=== PATIENT | female | born 1980 | race Caucasian/White ===

== ENCOUNTER 2017-01-20 19:58 | Emergency (ER) | payer OTHER ==
[2017-01-20 20:17] VITALS: BP 152/98
[2017-01-20] MEDS ORDERED: Ipratropium 0.5MG/2.5ML NEB* 0.5 MG/2.5 ML NEB.SOLN INH ONE (20:25)
[2017-01-20] MEDS ORDERED: Albuterol 2.5 MG/3 ML NEB.SOL* (0.083%) INH ONE (20:25)
[2017-01-20] MEDS ORDERED: methylPREDNISolone 125 MG* 2 ML VIAL IV ONE (20:29)
--- NOTE | 2017-01-20 22:25 | UC ---
Ramu Goodrich Janilya, scribed for Mary Quiroz MD on 01/20/17 at 2028 . Respiratory Complaint HPI - HPI Summary HPI Summary: A 36 y/o female came in to [facility] presenting w/ a gradual onset of constant respiratory complaint for about a few days. Pt reports cough that is so significant that she passes out and turns blue. She also reports fever. Her O2 level now is 88%. Pt uses CPAP and home O2 2L at night, but sometimes she removes it. PMHx sleep apnea. SHx heavy tobacco use. - History of Current Complaint Chief Complaint: UCRespiratory Stated Complaint: COUGH Time Seen by Provider: 01/20/17 20:20 Hx Obtained From: Patient Hx Last Menstrual Period: does not get Onset/Duration: Gradual Onset, Lasting Days, Still Present Timing: Constant Severity Initially: Moderate Severity Currently: Moderate Pain Intensity: 0 Pain Scale Used: 0-10 Numeric Character: Cough: Nonproductive Aggravating Factors: Nothing Alleviating Factors: Nothing Associated Signs And Symptoms: Positive: Dyspnea, Dizziness, URI, Nasal Congestion - Risk Factors Pulmonary Embolism Risk Factors: Negative Cardiac Risk Factors: Smoking Pseudomonas Risk Factors: Negative Tuberculosis Risk Factors: Negative - Allergies/Home Medications Allergies/Adverse Reactions: Allergies Allergy/AdvReac Type Severity Reaction Status Date / Time No Known Allergies Allergy Verified 01/20/17 20:17 Home Medications: Home Medications Citalopram TAB* [CeleXA TAB*] 20 mg PO DAILY 01/20/17 [History Confirmed ] Cyclobenzaprine TAB* [Flexeril TAB*] 10 mg PO BID PRN 01/20/17 [History Confirmed 01/20/17] Fluticasone-Salmeterol 500-50* [Advair Diskus 500-50*] 1 puff INH BID 01/20/17 [ History Confirmed 01/20/17] Gabapentin CAP(*) [Neurontin 400 mg CAP(*)] 800 mg PO BID 01/20/17 [History Confirmed 01/20/17] PMH/Surg Hx/FS Hx/Imm Hx Previously Healthy: Yes Respiratory History Of: Reports: Asthma - O2 at night - Surgical History Surgical History: Yes Surgery Procedure, Year, and Place: Tubal ligation. - Family History Known Family History: Positive: Cardiac Disease, Hypertension, Diabetes - Social History Lives: With Family Alcohol Use: Occasionally Substance Use Type: None Smoking Status (MU): Current Every Day Smoker Type: Cigarettes Amount Used/How Often: 1/2 ppd day - Immunization History Most Recent Influenza Vaccination: fall 2015 Most Recent Tetanus Shot: Unknown Hx Tetanus, Diphtheria Vaccination: - Patient is unsure Review of Systems Constitutional: Fever Skin: Negative Eyes: Negative ENT: Negative Respiratory: Shortness Of Breath, Cough Cardiovascular: Negative Gastrointestinal: Negative Genitourinary: Negative Motor: Negative Neurovascular: Negative Musculoskeletal: Negative Neurological: Negative Psychological: Negative All Other Systems Reviewed And Are Negative: Yes Physical Exam Triage Information Reviewed: Yes Appearance: No Pain Distress, Well-Nourished, Ill-Appearing Vital Signs: Initial Vital Signs Temp 97.0 F 01/20/17 20:10 Pulse 106 01/20/17 20:10 Resp 20 01/20/17 20:10 BP 152/98 01/20/17 20:10 Pulse Ox 88 01/20/17 20:10 Vital Signs Reviewed: Yes Eyes: Positive: Conjunctiva Clear ENT: Positive: Normal ENT inspection Neck: Positive: Supple Respiratory: Positive: Respiratory distress, Decreased breath sounds, Wheezing Cardiovascular: Positive: RRR, Pulses Normal, Brisk Capillary Refill Musculoskeletal: Positive: Strength Intact, ROM Intact Neurological: Positive: Alert, Muscle Tone Normal Psychological Exam: Normal Skin Exam: Normal UC Diagnostic Evaluation - Laboratory O2 Sat by Pulse Oximetry: 88 Respiratory Course/Dx - Differential Dx/Diagnosis Differential Diagnosis/HQI/PQRI: Asthma, Bronchitis, Exacerbation Of COPD, Influenza, Lower Resp Infection Provider Diagnoses: respiratory distress. acute bronchospasm - Physician Notification/Consults Discussed Patient Care With: Dutch Kunz (PA at the [facility]) at 2025: discussed transfer to the hospital due to significance of pt's current condition. Discharge - Discharge Plan Condition: Stable Disposition: TRANS HIGHER LVL OF CARE FAC Referrals: eDlilah Gregory MD [Primary Care Provider] - The documentation as recorded by the Ramu treviño Janilya accurately reflects the service I personally performed and the decisions made by , Mary Quiroz MD.
== END 2017-01-20 21:45 | disposition short-term general hospital (02) ==
LOC: UCEAST 19:58
DX: R06.00 Dyspnea, unspecified (principal); J45.909 Unspecified asthma, uncomplicated; F17.210 Nicotine dependence, cigarettes, uncomplicated
CPT/HCPCS: 96360; 96375; 99213; G0463; J2930; J7644

== ENCOUNTER 2017-01-20 21:40 | Emergency (ER) | payer OTHER ==
[2017-01-20 23:31] VITALS: BP 151/90
--- NOTE | 2017-01-20 23:31 | ED ---
Nic Goodrich Benjamin, scribed for Rock Ortiz MD on 01/20/17 at 2158 . Shortness of Breath - HPI Summary HPI Summary: 36yo female had cough spells and passed out. Pt feels better now. Pt came to ED via EMS for low O2 sat. Pt is on 2L Oxygen at home on nights. - History of Current Complaint Time Seen by Provider: 01/20/17 21:53 Hx Obtained From: Patient Onset/Duration: Lasting Hours, Resolved Timing: Constant Current Severity: None Alleviating Factors: Oxygen Associated Signs & Symptoms: Cough (Nonproductive) - Allergy/Home Medications Allergies/Adverse Reactions: Allergies Allergy/AdvReac Type Severity Reaction Status Date / Time No Known Allergies Allergy Verified 01/20/17 20:17 PMH/Surg Hx/FS Hx/Imm Hx Endocrine/Hematology History: Denies: Hx Diabetes Respiratory History: Reports: Hx Asthma - O2 at night, Other Respiratory Problems/Disorders - 02 AT NIGHT - Surgical History Surgery Procedure, Year, and Place: Tubal ligation. - Family History Known Family History: Positive: Cardiac Disease, Hypertension, Diabetes - Social History Alcohol Use: Occasionally Substance Use Type: Reports: None Smoking Status (MU): Current Every Day Smoker Type: Cigarettes Amount Used/How Often: 1/2 ppd day Review of Systems Constitutional: Negative Eyes: Negative ENT: Negative Cardiovascular: Negative Positive: Shortness Of Breath, Cough Gastrointestinal: Negative Genitourinary: Negative Musculoskeletal: Negative Skin: Negative Neurological: Negative Psychological: Normal All Other Systems Reviewed And Are Negative: Yes Physical Exam Triage Information Reviewed: Yes Vital Signs On Initial Exam: Initial Vitals Temp Pulse Resp BP Pulse Ox 97.6 F 91 20 131/83 96 01/20/17 22:08 01/20/17 22:08 01/20/17 22:08 01/20/17 22:08 01/20/17 22:08 Vital Signs Reviewed: Yes Appearance: Positive: Well-Appearing, Obese - morbidly Skin: Positive: Warm Eyes: Positive: DALLIN ENT: Positive: Hearing grossly normal Neck: Positive: Supple Respiratory/Lung Sounds: Positive: Clear to Auscultation, Breath Sounds Present Cardiovascular: Positive: RRR. Negative: Murmur Abdomen Description: Positive: Nontender, Soft Bowel Sounds: Positive: Present Musculoskeletal: Positive: Strength/ROM Intact Neurological: Positive: Sensory/Motor Intact Psychiatric: Positive: Affect/Mood Appropriate Diagnostics - Vital Signs Vital Signs Temp Pulse Resp BP Pulse Ox 01/20/17 22:08 97.6 F 91 20 131/83 96 - Laboratory Result Diagrams: 01/20/17 23:05 01/20/17 23:05 Lab Statement: Any lab studies that have been ordered have been reviewed, and results considered in the medical decision making process. Re-Evaluation - Re-Evaluation First Eval Change: Improved Course/Dx - Diagnoses Provider Diagnoses: Syncope Discharge - Discharge Plan Condition: Stable Disposition: HOME Patient Education Materials: Syncope (ED) Referrals: Delilah Gregory MD [Primary Care Provider] - 1 Week The documentation as recorded by the Nic treviño Benjamin accurately reflects the service I personally performed and the decisions made by Angel snyder David, MD.
[2017-01-20 23:35] LABS: Hematocrit 50 % (35-47); Hemoglobin 16.6 g/dl (12.0-16.0); Mean Corpuscular HGB Conc 33 g/dl (31-36); Mean Corpuscular Hemoglobin 32 pg (27-31); Mean Corpuscular Volume 95 fL (80-97); Mean Platelet Volume 9 um3 (7.4-10.4); Red Blood Count 5.27 10^6/ul (4.0-5.4); Red Cell Distribution Width 14 % (10.5-15); White Blood Count 5.8 10^3/ul (3.5-10.8)
[2017-01-20 23:39] LABS: BUN/Creatinine Ratio 9.7 (8-20); Calcium 9.6 mg/dL (8.6-10.3); EGFR African American 87.2 (>60); EGFR Non-African American 67.8 (>60); Potassium 3.9 mmol/L (3.5-5.0)
--- NOTE | 2017-01-21 07:43 | RAD ---
INDICATION: Syncope COMPARISON: Chest x-ray dated November 15, 2015 TECHNIQUE: PA and lateral views of the chest were obtained. FINDINGS: The heart and mediastinum are normal in size and contour. The lungs are grossly clear. There is no evidence of large pleural effusion. Visualized bones are normal for the patient's age. There is no radiographic evidence of free air beneath the diaphragm IMPRESSION: No radiographic evidence of acute cardiopulmonary disease.
== END 2017-01-21 01:08 | disposition home or self-care (01) ==
LOC: ED 21:40
DX: R55 Syncope and collapse (principal); R06.02 Shortness of breath; R05 Cough; F17.210 Nicotine dependence, cigarettes, uncomplicated; J45.909 Unspecified asthma, uncomplicated; R06.00 Dyspnea, unspecified
CPT/HCPCS: 36415; 71020; 80048; 85025; 96360; 96375; 99213; 99283; G0463; J2930; J7644

== ENCOUNTER 2017-01-22 14:15 | Inpatient (IN) | payer OTHER ==
[2017-01-22] MEDS ORDERED: methylPREDNISolone SOD SUCC* 125 MG 2 ML VIAL IV ONE (15:03)
[2017-01-22] MEDS ORDERED: Albuterol/Ipratropium NEB.SOL* Albuterol 2.5 MG/Ipratropium 0.5 MG 3 ML INH ONE (15:03)
--- NOTE | 2017-01-22 15:18 | ED ---
Asthma - HPI Summary HPI Summary: 36 female presents with complaints of SOB, cough and difficulty breathing x 1 week. Patient was seen in ED on 01/20 after being transferred here from [facility] due to an asthma exacerbation and syncope due to coughing so hard. She was sent home from ED. Followed-up with her PCP today who sent her back here to ED due to low O2 sat. Patient O2 at PCP was about 88% after being on oxygen 4L nasal cannula she has been at 94-96%. Admits to SOB and worsening cough symptoms that has become more frequent and productive. States she coughs up green/yellow colored sputum. Denies fever/chills, chest pain, abdominal pain. Does have some nasal congestion and headaches. PMHx significant for sleep apnea and asthma. She is on 2ml of oxygen via nasal cannula at night and CPAP. Is prescribed flexeril for her back however has not taken it in weeks. She only uses an inhaler and advair diskus at home for her asthma. Has not been taking steroids was only given solumedrol on 01/20 IV at urgent care. Quit smoking 1 week ago. - History of Current Complaint Chief Complaint: EDShortnessOfBreath Stated Complaint: SOB Time Seen by Provider: 01/22/17 14:32 Hx Obtained From: Patient Hx Last Menstrual Period: does not get Onset/Duration: Sudden Onset Initial Severity: Moderate Current Severity: Moderate Pain Intensity: 0 Pain Scale Used: 0-10 Numeric Aggravating Symptoms: Exertion Alleviating Symptoms: Steriods, Inhalers/Nebulizers, Oxygen Associated Signs and Symptoms: Positive: URI, Shortness of Breath - Allergy/Home Medications Allergies/Adverse Reactions: Allergies Allergy/AdvReac Type Severity Reaction Status Date / Time No Known Allergies Allergy Verified 01/20/17 20:17 PMH/Surg Hx/FS Hx/Imm Hx Endocrine/Hematology History: Denies: Hx Diabetes Respiratory History: Reports: Hx Asthma - O2 at night, Hx Sleep Apnea, Other Respiratory Problems/Disorders - 02 AT NIGHT - Surgical History Surgery Procedure, Year, and Place: Tubal ligation. - Immunization History Date of Influenza Vaccine: 08/22/16 Infectious Disease History: No Infectious Disease History: Denies: Traveled Outside the [place] in Last 30 Days - Family History Known Family History: Positive: Cardiac Disease, Hypertension, Diabetes - Social History Alcohol Use: Occasionally Substance Use Type: Reports: None Smoking Status (MU): Former Smoker Type: Cigarettes Amount Used/How Often: 1/2 day Review of Systems Constitutional: Negative Eyes: Negative Positive: Nasal Discharge Cardiovascular: Negative Positive: Shortness Of Breath, Cough Gastrointestinal: Negative Genitourinary: Negative Musculoskeletal: Negative Skin: Negative Positive: Headache - not now, but over the past couple of days Psychological: Normal All Other Systems Reviewed And Are Negative: Yes Physical Exam Triage Information Reviewed: Yes Vital Signs On Initial Exam: Initial Vitals Temp Pulse Resp BP Pulse Ox 98.4 F 92 20 146/92 93 01/22/17 14:38 01/22/17 14:38 01/22/17 14:38 01/22/17 14:38 01/22/17 14:38 Vital Signs Reviewed: Yes Appearance: Positive: Well-Appearing, No Pain Distress, Well-Nourished Skin: Positive: Warm, Skin Color Reflects Adequate Perfusion - cap refill <2 second refill, Dry. Negative: Cyanosis @, Diaphoretic Head/Face: Positive: Normal Head/Face Inspection Eyes: Positive: EOMI, DALLIN, Conjunctiva Clear ENT: Positive: Normal ENT inspection, Hearing grossly normal, Pharynx normal, Nasal congestion, TMs normal Dental: Negative: Percussion Tenderness @, Cervical Lymphadenopathy Neck: Positive: Supple, Nontender, No Lymphadenopathy Respiratory/Lung Sounds: Positive: Clear to Auscultation, Breath Sounds Present , Rhonchi, Wheezes - throughout. Negative: Tracheal Deviation, Unable to speak in full sentences, Fatigue Cardiovascular: Positive: Normal, RRR, Pulses are Symmetrical in both Upper and Lower Extremities. Negative: Leg Edema Left, Leg Edema Right Abdomen Description: Positive: Nontender, No Organomegaly, Soft Bowel Sounds: Positive: Present Musculoskeletal: Positive: Normal, Strength/ROM Intact Neurological: Positive: Normal, Sensory/Motor Intact, Alert, Oriented to Person Place, Time Psychiatric: Positive: Normal - [place] Coma Scale Coma Scale Total: 15 Diagnostics - Vital Signs Vital Signs Temp Pulse Resp BP Pulse Ox 01/22/17 14:38 98.4 F 92 20 146/92 93 - Laboratory Result Diagrams: 01/22/17 15:35 01/22/17 16:45 Lab Statement: Any lab studies that have been ordered have been reviewed, and results considered in the medical decision making process. - Radiology chest x-ray Xray Interpretation: No Acute Changes - No active cardiopulmonary disease is noted Radiology Interpretation Completed By: Radiologist - CT No standard instances CT Interpretation: Positive (See Comments) - 1. Bilateral patchy pulmonary consolidation suspicious for bronchopneumonia. 2. Mildly limited CT pulmonary angiogram without compelling evidence for pulmonary embolism. 3. Mildly enlarged precarinal and subcarinal mediastinal lymph nodes. 4. Partially visualized LEFT adrenal mass is likely a benign lipid rich adenoma however nonemergent follow-up noncontrast CT of the adrenal glands is suggested for further assessment. CT Interpretation Completed By: Radiologist - EKG No standard instances Cardiac Rate: NL EKG Rhythm: Sinus Rhythm Re-Evaluation - Re-Evaluation First Eval Re-Evaluation Time: 20:05 Change: Unchanged - patient did not have much of any relief after steroid and duoneb. Did feel better with supplemental O2 Asthma Course/Dx - Course Course Of Treatment: last duoneb was given at PCP office around 1pm. Another duoneb was administered here. Repeat chest x-ray due to worsening cough and symptoms not improving. Solumedrol IV given. Patient did not have any relief after steroid or duoneb. Does have relief when wearing oxygen. Due to no improvement CTA EKG and ABG's were obtained. CTA was suscpicous for bronchopneumonia. Gave first dose of 750mg Levaquin IV while in ED. Patient O2 would drop to 85% without oxygen, speaking in full sentences, stating she felt fine. PAtient O2 would increase to 94% with 2L oxygen via NC however would drop to 88% on occasion. Discussed case with Dr Light who also evaluated patient. [place] be [place] [facility] [place] Light spoke with Dr Mattson. - Diagnoses Differential Diagnosis/HQI/PQRI: Positive: Acute Asthma, Bronchitis, Pneumonia Provider Diagnoses: COPD (chronic obstructive pulmonary disease), Hypoxia, Pneumonia - Provider Notifications Discussed Care Of Patient With: Dr Mattson, Dr Light Instructed by Provider To: Admit As Inpatient Discharge - Discharge Plan Condition: Stable Disposition: ADMITTED TO [facility] Prescriptions: Albuterol 2.5MG/3ML (0.083%)* [Ventolin 2.5 MG/3 ML NEB.CAR*] 2.5 mg INH Q4H # 30 neb.car Levofloxacin TAB* [Levaquin 500 Tab*] 500 mg PO DAILY #10 tab predniSONE TAB* [Deltasone TAB*] 40 mg PO DAILY #4 tab Patient Education Materials: Pneumonia (ED), Levofloxacin (By mouth) Referrals: Delilah Gregory MD [Primary Care Provider] -
--- NOTE | 2017-01-22 15:43 | RAD ---
Indication: Shortness of breath, wheezing. No changes noted since January 20, 2017. 2 views of the chest including dual energy PA views demonstrate no mediastinal shift. Heart is of normal size and configuration. Lung castellanos demonstrate no pleural fluid, pneumonia or pneumothorax. IMPRESSION: No active cardiopulmonary disease is noted.
[2017-01-22 16:58] LABS: Hematocrit 49 % (35-47); Hemoglobin 16.1 g/dl (12.0-16.0); Mean Corpuscular HGB Conc 33 g/dl (31-36); Mean Corpuscular Hemoglobin 32 pg (27-31); Mean Corpuscular Volume 96 fL (80-97); Mean Platelet Volume 9 um3 (7.4-10.4); Red Blood Count 5.09 10^6/ul (4.0-5.4); Red Cell Distribution Width 14 % (10.5-15); White Blood Count 5.9 10^3/ul (3.5-10.8)
[2017-01-22 17:09] LABS: Albumin 3.9 g/dL (3.2-5.2); Calcium 9.6 mg/dL (8.6-10.3); EGFR African American 100.9 (>60); EGFR Non-African American 78.4 (>60); Globulin 3.7 g/dL (2-4); Total Bilirubin 0.4 mg/dL (0.2-1.0); Total Protein 7.6 g/dL (6.4-8.9)
[2017-01-22] MEDS ORDERED: Iohexol 350* (CONTRAST) 500 ML MDV IV ONE (17:47)
--- NOTE | 2017-01-22 19:09 | RAD ---
INDICATION: Recent coughing and syncopal episode. Decreased O2 saturation. Tobacco cessation one week ago. COMPARISON: January 22, 2017 chest radiograph. TECHNIQUE: Multidetector CT images were obtained from the lung apices to the upper abdomen with 88 mL Omnipaque 350 IV contrast. Pulmonary angiogram protocol. Multiplanar reformation including with maximum intensity projection. REPORT: Obesity limits image quality. Bilateral patchy pulmonary consolidation suspicious for bronchopneumonia. 3 cm bulla at the medial LEFT upper lung zone and smaller bulla at the anterior RIGHT upper lobe and anterior basal segment of the RIGHT lower lobe. Negative for pleural effusions. Negative for pneumothorax. Normal size range 0.6 cm RIGHT paratracheal nodes. Mildly prominent 1.2 cm short axis precarinal lymph node. Mildly prominent 1.2 cm short axis subcarinal lymph node. Mild cardiomegaly. Negative for pericardial effusion. Normal diameter thoracic aorta without evidence for dissection. The CT pulmonary angiogram is mildly limited due to morbid obesity and respiratory motion. No gross filling defects are identified within the main through the segmental and where conspicuous the subsegmental pulmonary arteries to indicate pulmonary embolism. Partially visualized hypodense LEFT adrenal mass measuring up to 3.4 x 3.0 cm and extending beyond the caudal margin of the [id number] is likely a benign lipid rich adenoma based on foci of low density measurement. Fatty infiltration of the liver. Negative for suspicious thoracic osseous lesions. IMPRESSION: 1. Bilateral patchy pulmonary consolidation suspicious for bronchopneumonia. 2. Mildly limited CT pulmonary angiogram without compelling evidence for pulmonary embolism. 3. Mildly enlarged precarinal and subcarinal mediastinal lymph nodes. 4. Partially visualized LEFT adrenal mass is likely a benign lipid rich adenoma however nonemergent follow-up noncontrast CT of the adrenal glands is suggested for further assessment.
[2017-01-22] MEDS ORDERED: Levofloxacin 750 MG IVPREMIX(* 750 MG/150 ML BAG IVPB ONE (20:11)
[2017-01-22 21:25] LABS: PCO2 Arterial 51 mmHg (35-45)
--- NOTE | 2017-01-22 21:57 | ED ---
Tammy Goodrich Matthew, scribed for Brannon Light MD on 01/22/17 at 2151 . Progress - Progress Note Progress Note: A 36 y/o female was seen by the PA for SOB, wheezing, and productive cough. The patient was given multiple albuterol treatments, DuoNeb, and solumedrol. The symptoms slightly improved; however right now the patient is saturating between 88-89% on 2L of oxygen. The patients also getting Levaquin for possible COPD vs hypoventilation syndrome. At this point, I discussed the case with Dr. Mattson who agrees to admit the patient for further work-up and management. The patient is A &Ox3. Physical Exam: The patient is generally obese in no acute distress. Lungs have bilaterally wheezing with decreased breath sounds. CVS S1 and S2 present with no murmur appreciated Extremities have full ROM with no edema noted Neuro: A&Ox3 with no acute focal neurological deficits noted. Course/Dx - Diagnoses Provider Diagnoses: COPD (chronic obstructive pulmonary disease), Hypoxia, Pneumonia The documentation as recorded by the Tammy treviño Matthew accurately reflects the service I personally performed and the decisions made by me, Brannon Light MD.
[2017-01-22] MEDS: Albuterol/Ipratropium NEB.SOL* Albuterol 2.5 MG/Ipratropium 0.5 MG 3 ML INH SCH (22:17)
[2017-01-22] MEDS ORDERED: Dextrose 50% Syringe 50 ML* 25 GM/50 ML SYRINGE IV PUSH PRN (22:19)
[2017-01-22] MEDS ORDERED: Albuterol 2.5 MG/3 ML NEB.SOL* (0.083%) INH PRN (22:19)
[2017-01-22] MEDS ORDERED: Ondansetron INJ* 2 MG/ML VIAL IV PRN (22:19)
[2017-01-22] MEDS ORDERED: Acetaminophen TAB* 325 MG PO PRN (22:19)
[2017-01-22] MEDS ORDERED: Cyclobenzaprine TAB* 10 MG PO PRN (22:30)
[2017-01-22] MEDS ORDERED: NS 0.9% 1000 ML* 1,000 ML IV SCH (22:30)
[2017-01-22] MEDS ORDERED: HYDROcodone/ACETAMIN 5-325 MG* 1 TAB PO PRN (22:31)
[2017-01-22] MEDS ORDERED: VARENICLINE 1 MG PO SCH (23:00)
[2017-01-23] MEDS: Albuterol/Ipratropium NEB.SOL* Albuterol 2.5 MG/Ipratropium 0.5 MG 3 ML INH SCH ×8 (00:10→23:50)
--- NOTE | 2017-01-23 01:57 | HP ---
HISTORY AND PHYSICAL: DATE OF ADMISSION: 01/22/17 TIME OF EVALUATION: In the ED, 10 p.m. PRIMARY CARE PROVIDER: Dr. Gregory. MY ATTENDING PHYSICIAN WHILE IN THE HOSPITAL: Dr. Semaj Mattson * (report dictated by Ismael Richey NP) CHIEF COMPLAINT: Shortness of breath. HISTORY OF PRESENTING ILLNESS: Ms. Flores is a 36-year-old female patient who comes into the ER today stating over the last five days, she has had progressive worsening cough, sore throat, and worsening shortness of breath. She has had she has been aching all over. She has not been feeling very well. She was evaluated on the 1st at Urgent Care and here in the ER, was sent home to trial outpatient therapy for an asthma exacerbation. Unfortunately, she has been failing that. She said over the last 3 days, she has been getting progressively more and more short of breath. She has been coughing, having chills, and just not feeling well. She came into the ER today at around 2:45, the patient was seen, there were multiple attempts given to the patient for nebs , steroids but after 7 hours in the ER and despite multiple attempts of trying to get the patient home and the fact that it was notable when she was ambulating , her O2 saturation dipped down to 88%, she was requiring O2 to keep them above 90%, the hospitalist service was asked to evaluate in admission after they had failed treating her in the ER. The patient says that she does feel better with the oxygen. She denies having any other symptoms such as chest pain. There has been no nausea or vomiting. States her biggest complaint is she does feel short of breath, that she has been hearing herself wheeze, and she was starting to cough up green sputum. There was a concern in the ER because of the failure of their attempts to liberate her from oxygen, so we were asked to evaluate for admission. PAST MEDICAL HISTORY: Significant for: 1. Diabetes. 2. GERD. 3. Asthma. 4. SHARMILA. 5. Back pain. 6. Depression. 7. PCOS. PAST SURGICAL HISTORY: 1. She has had . 2. Tubal ligation. HOME MEDICATIONS: According to the patient's list include: 1. Metformin 1000 mg p.o. b.i.d. 2. Omeprazole 40 mg daily. 3. Hydrocodone 1 tablet every 6 hours as needed. 4. Chantix 1 mg p.o. b.i.d. 5. Neurontin 300 mg p.o. b.i.d. 6. Advair 1 puff inhaled b.i.d. 7. Flexeril 10 mg p.o. b.i.d. as needed. 8. Celexa 20 mg p.o. daily. 9. Ventolin 1 puff inhaled every 4 hours as needed. ALLERGIES TO MEDICATIONS: No known drug allergies. FAMILY HISTORY: I reviewed her mother's history, is not contributory. Her father though did have a history of hypertension only. SOCIAL HISTORY: She is a pack a day smoker for about 20 years. She quit about a week ago. She is currently on Chantix. She does not drink alcohol. Surrogate decision maker will be her sister. REVIEW OF SYSTEMS: There is no documented fever. She does admit to having chills subjectively. No significant weight change. There was no double vision. There is no ear discharge. There was rhinorrhea. There is sore throat. There is no thyroid enlargement. Denied having any chest pain. There is no orthopnea. There is dyspnea on exertion. There was no nocturnal dyspnea. No abdominal pain, no nausea, no vomiting. No dysuria, no frequency. No loss of consciousness. No pruritus, no skin ulceration. Review of 14 systems completed, all others negative. PHYSICAL EXAMINATION GENERAL: At this time, Ms. Flores is a 36-year-old female patient, she is morbidly obese. She is sitting in the chair in the [facility]. She does not appear to be in any acute distress. VITAL SIGNS: Reveal blood pressure 146/92 with a pulse of 92; respirations 20; O2 sat 93% on 3.5 L, when she did ambulate, she dropped down to 88% to 89%; temperature 98.4. HEENT: Head: Atraumatic, normocephalic. Eyes: EOMs intact. Sclerae anicteric and not pale. Throat oral mucosa appears to be dry, no oropharyngeal erythema. NECK: Supple. LUNGS: Expiratory wheezing were noted throughout. No rhonchi. HEART: Sounds S1 and S2. Regular rate and rhythm. No murmurs, rubs, or gallops. ABDOMEN: Soft, flat, nontender. Bowel sounds present. EXTREMITIES: Pulses 2+ throughout, able to move all 4 extremities with 5/5 strength. NEUROLOGIC: The patient is awake, alert, and oriented x3. Tongue midline. Counselor Education Professor were equal. She had no gross focal deficits. SKIN: Intact. DIAGNOSTIC STUDIES/LAB DATA: Labs today revealed WBC of 5.9, RBC of 5.09, hemoglobin 16.1, hematocrit 49, platelet count 178. Blood gas revealed pH of 7.37, PCO2 of 51, her PO2 was 56, her bicarb is 26. Chemistry revealed sodium 140, potassium 4.0, chloride of 101, bicarb 32, BUN 9, creatinine 0.82, glucose 97, lactate 1.1, and calcium 9.6. Total bili 0.4, AST 36, ALT 18, and alk phos 82. Albumin was 3.9. She had chest CTA, which revealed today, bilateral patchy pulmonary consolidation suspicious for bronchopneumonia. Mildly limited CT pulmonary angiogram without compelling evidence for PE. Mildly enlarged precarinal and subcarinal mediastinal lymph nodes. She had a partially visualized left adrenal mass, likely a benign lipid-rich adenoma. However, non- emergent followup with noncontrast CT scan of adrenal glands was suggested. She also had a chest x-ray obtained today, under my review, I did not see any obvious signs of infiltrate or effusion. Radiology read it as no active cardiopulmonary disease. She had an EKG here in the ED as well, which showed a normal sinus rhythm, rate of 91, no ST elevations or T-wave inversions were noted. Old medical records were reviewed. ASSESSMENT AND PLAN: Ms. Flores is a 36-year-old female patient coming into the ER today with complaints of worsening shortness of breath. On evaluation in the ER, she was given nebs, steroids, and despite that she failed treatment after being in the ER for about 7 hours. Hospitalist service was asked to evaluate for admission. She will be admitted under inpatient status for: 1. Asthma exacerbation failing outpatient therapy. At this point, I am going to put her on nebs every 4 hours with p.r.n. albuterol, pulmonary toileting. I am going to get legionella and Strep pneumo antigens. I am going to check her for the flu as well. I am going to go ahead and put her on Dulera and I am going to start antibiotics in the form of Levaquin for the time being and I will wait for the flu swab. If the flu swab is positive, I will put her on Tamiflu. I have ordered a flutter valve and I will get a sputum culture if possible. 2. Impaired fasting glucose and question of diabetes. She is on metformin b.i.d. I am going to get an A1c, I will put her on lispro sliding scale, holding the metformin for now because she had CTA today. 3. Gastroesophageal reflux disease. Continue PPI therapy. 4. Obstructive sleep apnea. I have ordered a CPAP. 5. Chronic back pain. Continue with Neurontin and p.r.n. Flexeril. 6. Depression. While she is on the Levaquin, we will hold her Celexa, it could be restarted at a later date. 7. Adrenal mass. At this point, we will go ahead and again we will defer this to her primary, she can have a non-emergent noncontrast CT of the abdomen and pelvis to further assess this. 8. Polycystic ovarian syndrome. Continue meds as prescribed. 9. DVT prophylaxis. She will be placed on heparin subcu. 10. Code status. Full code. 11. Fluid, electrolytes, and nutrition. She can have a heart healthy diet. TIME SPENT: On the admission was 60 minutes; greater than half the time was spent [id number] with the patient obtaining my history and physical, the other half time was spent going over the plan of care with the patient and implementing plan of care. I did discuss the plan of care with my attending, Dr. Mattson; he is in agreement. ISMAEL RICHEY NP CC: Dr. Gregory* [id number]/[facility] #: [id number] SHELL
[2017-01-23] MEDS: methylPREDNISolone SOD SUCC* 125 MG 2 ML VIAL IV SCH ×2 (04:45→16:52)
[2017-01-23] MEDS: Heparin VIAL(*) 5000 UNITS/ML VIAL (FIVE THOUSAND) SUBCUT SCH ×3 (05:00→21:49)
[2017-01-23 06:31] LABS: Hematocrit 47 % (35-47); Hemoglobin 15.1 g/dl (12.0-16.0); Mean Corpuscular HGB Conc 33 g/dl (31-36); Mean Corpuscular Hemoglobin 31 pg (27-31); Mean Corpuscular Volume 96 fL (80-97); Mean Platelet Volume 9 um3 (7.4-10.4); Red Blood Count 4.85 10^6/ul (4.0-5.4); Red Cell Distribution Width 14 % (10.5-15); White Blood Count 5.4 10^3/ul (3.5-10.8)
[2017-01-23] MEDS: Nicotine PATCH 21 MG/24 HR* PATCH TRANSDERM SCH (06:56)
[2017-01-23 07:11] LABS: BUN/Creatinine Ratio 14.3 (8-20); Calcium 9.4 mg/dL (8.6-10.3); EGFR African American 108.5 (>60); EGFR Non-African American 84.4 (>60); Potassium 4.2 mmol/L (3.5-5.0)
[2017-01-23] MEDS: Mometasone/Formoter 200/5 MDI INH SCH ×3 (07:48→20:32)
[2017-01-23] MEDS: Insulin LISPRO* 1 UNITS UNIT SUBCUT SCH ×3 (07:57→17:29)
[2017-01-23] MEDS ORDERED: Pneumococcal Vac Polyvalent* 0.5 ML VIAL IM ONE (09:00)
[2017-01-23] MEDS: Gabapentin CAP(*) 300 MG PO SCH ×2 (09:11→21:48)
[2017-01-23] MEDS: Omeprazole CAP* 20 MG PO SCH (09:11)
--- NOTE | 2017-01-23 10:16 | PN ---
Subjective Date of Service: 01/23/17 Interval History: Pt is feeling better now than when she presented but she still feels tight. She wants to go home however as she has not seen her sons in over 24hr. She does state that she will stay if needed. Objective Active Medications: Acetaminophen (Tylenol Tab*) 650 mg PO Q4H PRN PRN Reason: FEVER/PAIN Last Admin: 01/23/17 01:19 Dose: 650 mg Hydrocodone Bitart/Acetaminophen ([place] 5-325 Tab*) 1 tab PO Q4H PRN PRN Reason: PAIN Albuterol (Ventolin 2.5 Mg/3 Ml Neb.Rosibel*) 2.5 mg INH Q2H PRN PRN Reason: SOB/WHEEZING Albuterol/Ipratropium (Duoneb Neb.Rosibel*) 1 neb INH [id number] AWAKE [facility] Last Admin: 01/23/17 07:48 Dose: 1 neb Cyclobenzaprine HCl (Flexeril Tab*) 10 mg PO BID PRN PRN Reason: SPASMS Dextrose (D50w Syringe 50 Ml*) 12.5 gm IV PUSH .FOR FS < 60 - SS PRN PRN Reason: FS < 60 Gabapentin (Neurontin Cap(*)) 300 mg PO BID [facility] Last Admin: 01/23/17 09:11 Dose: 300 mg Heparin Sodium (Porcine) (Heparin Vial(*)) 5,000 units SUBCUT Q8HR [facility] Last Admin: 01/23/17 05:00 Dose: 5,000 units Levofloxacin/Dextrose (Levaquin 750 Mg Ivpremix(*)) 750 mg in 150 mls @ 100 mls /hr IVPB Q24H [facility] Sodium Chloride (Ns 0.9% 1000 Ml*) 1,000 mls @ 100 mls/hr IV PER RATE [facility] Insulin Human Lispro (Humalog*) 0 units SUBCUT AC [facility] PRN Reason: Protocol Last Admin: 01/23/17 07:57 Dose: Not Given Methylprednisolone Sodium Succinate (Solu-Medrol*) 60 mg IV Q12H [facility] Last Admin: 01/23/17 04:45 Dose: 60 mg Mometasone Furoate/Formoterol Fumar (Dulera 200/5 Mdi*) 2 puff INH BID [facility] Last Admin: 01/23/17 07:48 Dose: 2 puff Nicotine (Nicotine Patch 21 Mg/24 Hr*) 1 patch TRANSDERM Q24HR [facility] Last Admin: 01/23/17 06:56 Dose: Not Given Omeprazole (Prilosec Cap*) 40 mg PO DAILY [facility] Last Admin: 01/23/17 09:11 Dose: 40 mg Ondansetron HCl (Zofran Inj*) 4 mg IV Q6H PRN PRN Reason: NAUSEA Pharmacy Profile Note (Nicotine Patch Removal Note*) 1 note PATCH OFF 2100 [facility] Vital Signs 01/23/17 01/23/17 01/23/17 00:00 00:09 00:12 Temperature 97.5 F Pulse Rate 90 103 Respiratory 20 18 Rate Blood Pressure 144/88 (mmHg) O2 Sat by Pulse 91 93 96 Oximetry 01/23/17 01/23/17 01/23/17 00:23 01:25 03:38 Temperature 97.7 F 97.7 F Pulse Rate 104 93 Respiratory 22 20 16 Rate Blood Pressure 153/98 141/86 (mmHg) O2 Sat by Pulse 92 Oximetry 01/23/17 01/23/17 01/23/17 03:44 07:49 07:53 Temperature 97.0 F Pulse Rate 94 77 75 Respiratory 18 17 16 Rate Blood Pressure 149/61 (mmHg) O2 Sat by Pulse 92 93 92 Oximetry 01/23/17 01/23/17 08:00 09:11 Temperature Pulse Rate Respiratory 18 16 Rate Blood Pressure (mmHg) O2 Sat by Pulse Oximetry Oxygen Devices in Use Now: Nasal Cannula - 3L-92% Appearance: Morbidly obese female sitting on the edge of the bed, NAD Eyes: No Scleral Icterus Ears/Nose/Mouth/Throat: Mucous Membranes Moist Respiratory: Symmetrical Chest Expansion and Respiratory Effort, - - breath sounds are tight, + expiratory wheezes-noted greatest in the upper lobes Cardiovascular: NL Sounds; No Murmurs; No JVD, RRR, No Edema Abdominal: NL Sounds; No Tenderness; No Distention Extremities: No Clubbing, Cyanosis Skin: No Rash or Ulcers, No Nodules or Sclerosis Neurological: Alert and Oriented x 3 Result Diagrams: 01/23/17 05:59 01/23/17 05:59 Microbiology and Other Data: Microbiology 01/23/17 01:30 Gram Stain - Final Sputum Expectorated 01/23/17 01:30 Legionella Urinary Antigen - Final Urine Negative Legionella Streptococcus pneumoniae Ag Screen - Final Negative S. pneumo Antigen 01/22/17 22:35 Influenza Types A,B Antigen (JYOTI) - Final Nasal Specimen received for Influenza A/B Molecular testing Assess/Plan/Problems-Billing Ms Flores is a 36 yo F who has a h/o asthma, SHARMILA, type II DM, PCOS and depression who presented to the ER with c/o SOB and was admitted for an asthma exacerbation. - Patient Problems (1) Asthma exacerbation Current Visit: Yes Status: Acute Code(s): J45.901 - UNSPECIFIED ASTHMA WITH (ACUTE) EXACERBATION SNOMED Code(s): 232958360 Comment: The patient is improved from admission though still tight. Continue q4hr duonebs, solumedrol 60mg IV q12. Will continue levaquin for a total of 5 days. Continue dulera. She is still requirring supplemental O2 at 3Lpm. I think she would benefit from 1 more day in the hospital though I will re-assess later this afternoon for possible d/c home. (2) Adrenal mass, left Current Visit: Yes Status: Acute Code(s): E27.9 - DISORDER OF ADRENAL GLAND , UNSPECIFIED SNOMED Code(s): 197306876 Comment: Pt needs a non-emergent non-contrast CT of the adrenal glands. Likely benign lipid rich adenoma. (3) Type II diabetes mellitus Current Visit: Yes Status: Acute Comment: A1c is pending. Metformin is on hold given she had IV contrast dye yesterday. Continue lispro sliding scale. (4) SHARMILA (obstructive sleep apnea) Current Visit: Yes Status: Acute Code(s): G47.33 - OBSTRUCTIVE SLEEP APNEA ( ADULT) (PEDIATRIC) SNOMED Code(s): 75667918 Comment: Will need to discuss with the patient if she uses CPAP at home. (5) Depression Current Visit: Yes Status: Acute Code(s): F32.9 - MAJOR DEPRESSIVE DISORDER , SINGLE EPISODE, UNSPECIFIED SNOMED Code(s): 96680355 Comment: Resume celexa. (6) Morbid obesity Current Visit: Yes Status: Acute Code(s): E66.01 - MORBID (SEVERE) OBESITY DUE TO EXCESS CALORIES SNOMED Code(s): 441573600 Comment: Diagnosis noted-encourage diet and exercise. (7) DVT prophylaxis Current Visit: Yes Status: Acute Code(s): KKK8683 - SNOMED Code(s): 081028393 Comment: SQ heparin (8) Full code status Current Visit: Yes Status: Acute Code(s): Z78.9 - OTHER SPECIFIED HEALTH STATUS SNOMED Code(s): 119516569
[2017-01-23] MEDS ORDERED: Nicotine Patch Removal NOTE PATCH OFF SCH (21:00)
[2017-01-23] MEDS ORDERED: Levofloxacin 750 MG IVPREMIX(* 750 MG/150 ML BAG IVPB SCH (22:00)
[2017-01-24 00:53] VITALS: BP 166/91
[2017-01-24] MEDS: methylPREDNISolone SOD SUCC* 125 MG 2 ML VIAL IV SCH (04:12)
[2017-01-24] MEDS: Albuterol/Ipratropium NEB.SOL* Albuterol 2.5 MG/Ipratropium 0.5 MG 3 ML INH SCH ×3 (05:44→11:47)
[2017-01-24] MEDS: Heparin VIAL(*) 5000 UNITS/ML VIAL (FIVE THOUSAND) SUBCUT SCH (05:45)
[2017-01-24] MEDS: Mometasone/Formoter 200/5 MDI INH SCH (08:14)
[2017-01-24] MEDS: Gabapentin CAP(*) 300 MG PO SCH (08:51)
[2017-01-24] MEDS: Omeprazole CAP* 20 MG PO SCH (08:51)
[2017-01-24] MEDS: Insulin LISPRO* 1 UNITS UNIT SUBCUT SCH ×2 (08:52→12:52)
[2017-01-24] MEDS: Nicotine PATCH 21 MG/24 HR* PATCH TRANSDERM SCH (08:53)
[2017-01-24] MEDS ORDERED: Citalopram TAB* 20 MG PO SCH (09:00)
--- NOTE | 2017-01-24 11:04 | PN ---
Subjective Date of Service: 01/24/17 Interval History: Pt is feeling much better. She still feels tight when breathing but was able to walk around the floor without oxygen and without feeling too SOB. She is agreeable to seeing Dr. Gomez today. Objective Active Medications: Acetaminophen (Tylenol Tab*) 650 mg PO Q4H PRN PRN Reason: FEVER/PAIN Last Admin: 01/23/17 01:19 Dose: 650 mg Hydrocodone Bitart/Acetaminophen ([place] 5-325 Tab*) 1 tab PO Q4H PRN PRN Reason: PAIN Albuterol (Ventolin 2.5 Mg/3 Ml Neb.Rosibel*) 2.5 mg INH Q2H PRN PRN Reason: SOB/WHEEZING Albuterol/Ipratropium (Duoneb Neb.Rosibel*) 1 neb INH [id number] AWAKE [facility] Last Admin: 01/24/17 08:12 Dose: 1 neb Citalopram Hydrobromide (Celexa Tab*) 20 mg PO DAILY [facility] Last Admin: 01/24/17 08:51 Dose: 20 mg Cyclobenzaprine HCl (Flexeril Tab*) 10 mg PO BID PRN PRN Reason: SPASMS Dextrose (D50w Syringe 50 Ml*) 12.5 gm IV PUSH .FOR FS < 60 - SS PRN PRN Reason: FS < 60 Gabapentin (Neurontin Cap(*)) 300 mg PO BID [facility] Last Admin: 01/24/17 08:51 Dose: 300 mg Heparin Sodium (Porcine) (Heparin Vial(*)) 5,000 units SUBCUT Q8HR [facility] Last Admin: 01/24/17 05:45 Dose: 5,000 units Levofloxacin/Dextrose (Levaquin 750 Mg Ivpremix(*)) 750 mg in 150 mls @ 100 mls /hr IVPB Q24H [facility] Last Admin: 01/23/17 21:48 Dose: 100 mls/hr Sodium Chloride (Ns 0.9% 1000 Ml*) 1,000 mls @ 100 mls/hr IV PER RATE [facility] Last Admin: 01/23/17 23:54 Dose: 100 mls/hr Insulin Human Lispro (Humalog*) 0 units SUBCUT AC [facility] PRN Reason: Protocol Last Admin: 01/24/17 08:52 Dose: 3 units Methylprednisolone Sodium Succinate (Solu-Medrol*) 60 mg IV Q12H [facility] Last Admin: 01/24/17 04:12 Dose: 60 mg Mometasone Furoate/Formoterol Fumar (Dulera 200/5 Mdi*) 2 puff INH BID [facility] Last Admin: 01/24/17 08:14 Dose: 2 puff Nicotine (Nicotine Patch 21 Mg/24 Hr*) 1 patch TRANSDERM Q24HR [facility] Last Admin: 01/24/17 08:53 Dose: Not Given Omeprazole (Prilosec Cap*) 40 mg PO DAILY [facility] Last Admin: 01/24/17 08:51 Dose: 40 mg Pharmacy Profile Note (Nicotine Patch Removal Note*) 1 note PATCH OFF 2100 [facility] Last Admin: 01/23/17 21:49 Dose: Not Given Vital Signs 01/23/17 01/23/17 01/23/17 11:11 11:17 11:29 Temperature 97.5 F Pulse Rate 82 Respiratory 16 17 Rate Blood Pressure 148/86 (mmHg) O2 Sat by Pulse 91 87 Oximetry 01/23/17 01/23/17 01/23/17 11:33 15:42 18:21 Temperature 97.4 F Pulse Rate 73 95 77 Respiratory 16 16 16 Rate Blood Pressure 143/78 (mmHg) O2 Sat by Pulse 92 93 98 Oximetry 01/23/17 01/23/17 01/23/17 19:41 19:56 21:48 Temperature 97.4 F Pulse Rate 86 Respiratory 16 18 20 Rate Blood Pressure 170/81 (mmHg) O2 Sat by Pulse 93 Oximetry 01/23/17 01/24/17 01/24/17 23:48 00:17 08:00 Temperature 97.4 F Pulse Rate 80 Respiratory 16 16 16 Rate Blood Pressure 166/91 (mmHg) O2 Sat by Pulse 96 Oximetry 01/24/17 01/24/17 01/24/17 08:16 08:51 09:01 Temperature 97.4 F Pulse Rate 78 80 Respiratory 16 16 16 Rate Blood Pressure 166/91 (mmHg) O2 Sat by Pulse 95 96 Oximetry 01/24/17 10:35 Temperature Pulse Rate Respiratory 16 Rate Blood Pressure (mmHg) O2 Sat by Pulse Oximetry Oxygen Devices in Use Now: None - 92% Appearance: Morbidly obese young female sitting on the edge of the bed, NAD Eyes: No Scleral Icterus Ears/Nose/Mouth/Throat: Mucous Membranes Moist Respiratory: - - Breath sounds are still quite tight and diminished at the bases Cardiovascular: NL Sounds; No Murmurs; No JVD, RRR, No Edema Abdominal: NL Sounds; No Tenderness; No Distention Extremities: No Clubbing, Cyanosis Skin: No Rash or Ulcers, No Nodules or Sclerosis Neurological: Alert and Oriented x 3 Result Diagrams: 01/23/17 05:59 01/23/17 05:59 Microbiology and Other Data: Microbiology 01/23/17 01:30 Gram Stain - Final Sputum Expectorated 01/23/17 01:30 Legionella Urinary Antigen - Final Urine Negative Legionella Streptococcus pneumoniae Ag Screen - Final Negative S. pneumo Antigen 01/22/17 22:35 Influenza Types A,B Antigen (JYOTI) - Final Nasal Specimen received for Influenza A/B Molecular testing Assess/Plan/Problems-Billing Ms Flores is a 36 yo F who has a h/o asthma, SHARMILA, type II DM, PCOS and depression who presented to the ER with c/o SOB and was admitted for an asthma exacerbation. - Patient Problems (1) Asthma exacerbation Current Visit: Yes Status: Acute Code(s): J45.901 - UNSPECIFIED ASTHMA WITH (ACUTE) EXACERBATION SNOMED Code(s): 990238047 Comment: Improved today in that she does not need supplemental O2 any more however she is still quite tight. She does not have a nebulizer at home. I think she is stable to go home today after meeting with Dr. Gomez. Will set her up for a nebulizer to use q4hr standing while awake over the next couple days then change to prn. Will transition to prednisone to complete a taper. Continue dulera. Complete a short course of levaquin. (2) Adrenal mass, left Current Visit: Yes Status: Acute Code(s): E27.9 - DISORDER OF ADRENAL GLAND , UNSPECIFIED SNOMED Code(s): 417860969 Comment: Pt needs a non-emergent non-contrast CT of the adrenal glands. Likely benign lipid rich adenoma. (3) Type II diabetes mellitus Current Visit: Yes Status: Acute Comment: A1c is mildly elevated at 6.7%. Continue metformin. (4) SHARMILA (obstructive sleep apnea) Current Visit: Yes Status: Acute Code(s): G47.33 - OBSTRUCTIVE SLEEP APNEA ( ADULT) (PEDIATRIC) SNOMED Code(s): 08751164 Comment: Pt has CPAP already at home. (5) Depression Current Visit: Yes Status: Acute Code(s): F32.9 - MAJOR DEPRESSIVE DISORDER , SINGLE EPISODE, UNSPECIFIED SNOMED Code(s): 05251869 Comment: Resume celexa. (6) Morbid obesity Current Visit: Yes Status: Acute Code(s): E66.01 - MORBID (SEVERE) OBESITY DUE TO EXCESS CALORIES SNOMED Code(s): 030100132 Comment: Diagnosis noted-encourage diet and exercise. (7) DVT prophylaxis Current Visit: Yes Status: Acute Code(s): VGW2096 - SNOMED Code(s): 239044098 Comment: SQ heparin (8) Full code status Current Visit: Yes Status: Acute Code(s): Z78.9 - OTHER SPECIFIED HEALTH STATUS SNOMED Code(s): 805440622 Status and Disposition: d/c home after Dr. Gomez consults
--- NOTE | 2017-01-24 20:45 | CONS ---
PULMONARY CONSULTATION REPORT: DATE OF CONSULTATION: 01/24/17 REASON FOR CONSULT: Evaluation of hypoxemia, shortness of breath, and asthma. CONSULTATION REQUESTED BY: Dr. Jackie Prieto. HISTORY OF PRESENT ILLNESS: The patient is a 36-year-old morbidly obese female who was brought into ED for evaluation of shortness of breath. The patient has not been feeling well for the past week. The patient was seen in [facility], was sent into the ED few days ago, and was sent home after she received bronchodilators. The patient was not prescribed antibiotic or prednisone at that time. The patient's symptoms did not improve over the next 3 days, had seen her primary care physician, and was sent to the ED for further evaluation. In the ED, the patient did not improve with nebs, steroids, and her oxygen saturation dropped to 88% on room air. The patient was admitted for further evaluation and management of asthma. The patient was noted to have hypercapnic and hypoxemic respiratory failure during the hospitalization. The patient had CTA of the chest which was personally reviewed by me. The patient with no evidence of pulmonary embolism. The patient noted to have patchy airspace opacities bilaterally concerning for pneumonia. The patient also noted to have 3-cm bullae in the left upper lung zone and smaller bullae at the anterior right upper lobe and basal segment of right lower lobe. Mildly prominent precarinal node at 1.2 cm and subcarinal node at 1.2 cm was noted. The patient also noted to have hypodense lesion in the left adrenal gland, likely lipid- rich adenoma. The patient has been doing well this morning. The patient has not needed O2 at rest. The patient has been needing O2 at 2 L during exertion. The patient has history of obstructive sleep apnea and has been on CPAP. The patient's machine has not been checked for long time. The patient claims to be compliant with her CPAP machine as prescribed. The patient is scheduled to go home today. PAST MEDICAL HISTORY: 1. Diabetes. 2. GERD. 3. Asthma. 4. SHARMILA. 5. Back pain. 6. Depression. 7. PCOS. PAST SURGICAL HISTORY: 1. . 2. Tubal ligation. MEDICATIONS: At home: 1. Metformin. 2. Omeprazole. 3. Hydrocodone. 4. Chantix. 5. Neurontin. 6. Advair. 7. Flexeril. 8. Celexa. 9. Ventolin. ALLERGIES: No known drug allergies. FAMILY HISTORY: Noncontributory to current admission. SOCIAL HISTORY: The patient is a former smoker with [id number] smoking history, quit 2 weeks. She is currently using Chantix. Does not drink alcohol. REVIEW OF SYSTEMS: All 14 systems reviewed as per HPI. PHYSICAL EXAM: The patient is in bed, no apparent distress. Vital Signs: Temperature 97.4, pulse rate 80 beats per minute, respiratory rate 16 per minute , O2 sat 96% on room air, blood pressure of 166/91. HEENT: Pupils equal and reactive to light. Mucous membranes are moist. No pharyngeal erythema. Neck: Supple, no JVD. Lungs: Expiratory wheezing present. Heart: S1, S2 present. No murmurs. Abdomen: Obese. Bowel sounds present, nontender, nondistended. Extremities: Normal range of motion. No edema. Neurologic: Alert, awake, and oriented x3. No focal deficits. Skin: No bruises or rash. DIAGNOSTIC STUDIES/LAB DATA: White blood cell count 5.4, hemoglobin 15.1, hematocrit 47, platelet count 169. INR 1.13. Blood gas analysis showed pH of 7.37, PCO2 of 51, PO2 of 56, bicarb 26.9, O2 sat 91.8%. Sodium 137, potassium 4.2, bicarb 26, chloride 101, BUN 11, creatinine 0.77, glucose 167, lactic acid 1.1, calcium 9.4. Influenza A and B negative. CT scan of the chest as described above in the HPI. IMPRESSION AND RECOMMENDATIONS: 36-year-old morbidly female with history of asthma, possible obesity hypoventilation syndrome, obstructive sleep apnea, admitted with worsening shortness of breath, hypoxemic and hypercapnic respiratory failure secondary to acute asthma exacerbation. 1. Acute asthma exacerbation, improving, likely secondary to viral bronchitis/ pneumonia. 2. Community-acquired pneumonia. 3. Obstructive sleep apnea. 4. Morbid obesity with possible obesity hypoventilation. 5. Hypoxemic respiratory failure secondary of asthma and obesity hypoventilation syndrome. The patient improved significantly since admission. The patient to be discharged home today. Recommend taper of prednisone over the next week. Continue with Levaquin to complete 7-day course. Continue with nicotine supplementation. Smoking cessation education and counseling was performed during today's visit, that lasted for 5 minutes. Consequence of smoking and interventions to quit smoking were discussed. The patient is on Advair at home, uses once a day. Advised the patient to use Advair twice daily. Continue with albuterol as needed. The patient with history of gastroesophageal reflux disease with symptoms secondary to noncompliance with therapy. Gastroesophageal reflux disease precautions provided. Continue with omeprazole. Continue with nicotine patches. Optimal control of sleep apnea importance was discussed with the patient. Will follow up with the patient in 2 weeks in the office. The patient was provided with instructions regarding asthma. Pathophysiology of asthma and association with sleep apnea was discussed. Thank for allowing me to participate in the care of your patient. The patient will need PFTs and monitoring of CPAP therapy as outpatient. [id number]/[facility] #: [id number] SHELL
--- NOTE | 2017-01-25 13:33 | DS ---
DISCHARGE SUMMARY: DATE OF ADMISSION: 01/22/17 DATE OF DISCHARGE: 01/24/17 PRIMARY CARE PROVIDER: Dr. Gregory. DEVELOPMENT TRAINER: Dr. Gomez. PRINCIPAL DIAGNOSIS: Asthma exacerbation. SECONDARY DIAGNOSES: 1. Type 2 diabetes. 2. Morbid obesity. 3. Obstructive sleep apnea. 4. Depression. 5. Polycystic ovary syndrome. DISCHARGE MEDICATIONS: 1. Metformin 1000 mg p.o. b.i.d. 2. Omeprazole 40 mg p.o. daily. 3. Hydrocodone-acetaminophen 7.5/300 1 tab p.o. 6 hours p.r.n. pain. 4. Chantix 1 mg p.o. b.i.d. 5. Gabapentin 300 mg p.o. b.i.d. 6. Advair 500/50 one puff inhaled b.i.d. 7. Flexeril 10 mg p.o. b.i.d. p.r.n. spasm. 8. Celexa 20 mg p.o. daily. 9. Albuterol two puffs inhaled q.4 h. p.r.n. shortness of breath. 10. Prednisone 40 mg p.o. daily x2 days, then 30 mg x2 days, 20 mg x2 days, and 10 mg x2 days. 11. Levaquin 500 mg p.o. daily x4 days. 12. Albuterol one nebulizer inhaled q.4 hours standing over the next two days, followed by every 4 hours as needed for shortness of breath. HOSPITAL COURSE: Ms. Flores is a 36-year-old female with history of asthma who presented to the emergency room with complaints of shortness of breath. The patient had been trying to manage this as an outpatient for the 3 days prior to admission; however, she was getting progressively more and more short of breath. The patient presented to the ER and attempts were made to give the patient standing nebulizers and steroids; however, she failed to improve and was requiring supplemental oxygen to maintain saturation over 90%. The patient was admitted for an asthma exacerbation. The patient slowly improved over the course of 2 days. She did get to the point where she was able to ambulate and be at rest on room air without requiring supplemental oxygen. The patient's breath sounds are still tight, therefore she is being discharged home on a prednisone taper. She will also continue a course of Levaquin for possible bronchitis as a trigger to her asthma exacerbation. The patient did not have a nebulizer at home and therefore, this was set up. The patient was seen in consultation by Dr. Gomez prior to discharge who agreed with the taper of prednisone over the next week and continuing Levaquin to complete the 7-day course. Smoking cessation was performed during her visit. The patient is to go up on her Advair to twice a day instead of once a day. The patient will follow up in the office with Dr. Gomez in approximately 2 weeks. FOLLOWUP CONCERNS: The patient is being discharged home today, 01/24/17. She is to follow up with Dr. Gregory in the next 4 to [address] Gomez in the next 2 weeks. ACTIVITY LEVEL: As tolerated. DIET: Low fat, diabetic. CONDITION ON DISCHARGE: Stable. TIME SPENT: Thirty five minutes was spent discharging this patient. CC: Dr. Gregory; Dr. Gomez* [id number]/[facility] #: [id number] [facility]
== END 2017-01-24 12:50 | disposition home or self-care (01) | DRG 141 ==
LOC: ED 14:15 → MED 22:17
PROVIDERS: ADMIT Internal Medicine; ATTEND Hospitalist
DX: J45.901 Unspecified asthma with (acute) exacerbation (principal); J96.02 Acute respiratory failure with hypercapnia; J96.01 Acute respiratory failure with hypoxia; Z68.44 Body mass index [BMI] 60.0-69.9, adult; Z87.891 Personal history of nicotine dependence; Z98.51 Tubal ligation status; Z82.49 Family history of ischemic heart disease and other diseases of the circulatory system; Z83.3 Family history of diabetes mellitus; K21.9 Gastro-esophageal reflux disease without esophagitis; G47.33 Obstructive sleep apnea (adult) (pediatric); F32.9 Major depressive disorder, single episode, unspecified; E28.2 Polycystic ovarian syndrome; E66.01 Morbid (severe) obesity due to excess calories; G89.29 Other chronic pain; M54.9 Dorsalgia, unspecified; E27.8 Other specified disorders of adrenal gland; Z79.52 Long term (current) use of systemic steroids; Z91.14 Patient's other noncompliance with medication regimen; Z79.84 Long term (current) use of oral hypoglycemic drugs; E11.9 Type 2 diabetes mellitus without complications
CPT/HCPCS: 36415; 36600; 71020; 71275; 80048; 80053; 82803; 83036; 83605; 85025; 85610; 87070; 87205; 87502; 87899; 90732; 93005; 94640; 94760; A9270-GY; J1644; J2930; Q9967

== ENCOUNTER 2017-07-20 18:30 | Emergency (ER) | payer OTHER ==
[2017-07-20 18:48] VITALS: BP 146/94
--- NOTE | 2017-07-20 19:10 | UC ---
Complaint Female HPI - HPI Summary HPI Summary: Pt presents to the ED with complaint of urinary frequency and odor. Pt states also has right sided back pain. Pt reports a h/o back problems and thinks pain related to this. Pt states with back pain difficulty finding position of comfort. Pt had 2 leftover [place] which she took last night with mild improvement. no Nausea. No fever, chills, rash. no abdominal pain. No incontinence bowel or bladder. No trauma. No ext weakness Pt denies vaginal discharge, itching or odor. - History Of Current Complaint Chief Complaint: UCBackPain Stated Complaint: ABDOMINAL COMPLAINT Time Seen by Provider: 07/20/17 18:48 Hx Obtained From: Patient Hx Last Menstrual Period: does not get ?: No Onset/Duration: Gradual Onset Timing: Constant Severity Currently: Moderate Pain Intensity: 5 Character: Sharp - stabbing Aggravating Factor(s): Movement Associated Signs And Symptoms: Positive: Negative, Back Pain. Negative: Fever, Vaginal Bleeding/Discharge, Nausea - Allergies/Home Medications Allergies/Adverse Reactions: Allergies Allergy/AdvReac Type Severity Reaction Status Date / Time No Known Allergies Allergy Verified 01/20/17 20:17 Home Medications: Home Medications buPROPion SR TAB* [Wellbutrin SR TAB*] 150 mg PO BID 07/20/17 [History Confirmed 07/20/17] PMH/Surg Hx/FS Hx/Imm Hx Previously Healthy: Yes - Surgical History Surgical History: Yes Surgery Procedure, Year, and Place: Tubal ligation. . cholecystectomy 2009 - Family History Known Family History: Positive: Cardiac Disease, Hypertension, Diabetes - Social History Alcohol Use: Rare Substance Use Type: None Smoking Status (MU): Smoker, Current Status Unknown Type: Cigarettes Amount Used/How Often: 1/2 ppd day or more Length of Time of Smoking/Using Tobacco: 20 years Have You Smoked in the Last Year: Yes When Did the Patient Quit Smoking/Using Tobacco: 1 week ago Household Exposure Type: Cigarettes - Immunization History Most Recent Influenza Vaccination: fall 2015 Most Recent Tetanus Shot: within last 5 years Most Recent Pneumonia Vaccination: none Hx Tetanus, Diphtheria Vaccination: - Patient is unsure Review of Systems Constitutional: Negative Skin: Negative Eyes: Negative ENT: Negative Respiratory: Negative Cardiovascular: Negative Gastrointestinal: Negative Genitourinary: Frequency, Urgency Motor: Negative Neurovascular: Negative Musculoskeletal: Other: - back pain Neurological: Negative Psychological: Negative All Other Systems Reviewed And Are Negative: Yes Physical Exam Triage Information Reviewed: Yes Appearance: Well-Appearing, No Pain Distress, Well-Nourished Vital Signs: Initial Vital Signs Temp 98.3 F 07/20/17 18:43 Pulse 97 07/20/17 18:43 Resp 18 07/20/17 18:43 BP 146/94 07/20/17 18:43 Pulse Ox 95 07/20/17 18:43 Vital Signs Reviewed: Yes Eye Exam: Normal Eyes: Positive: Conjunctiva Clear ENT Exam: Normal ENT: Positive: Normal ENT inspection, Hearing grossly normal, Pharynx normal, TMs normal Dental Exam: Normal Neck exam: Normal Neck: Positive: Supple, Nontender, No Lymphadenopathy Respiratory Exam: Normal Respiratory: Positive: Chest non-tender, Lungs clear, Normal breath sounds, No respiratory distress, No accessory muscle use Cardiovascular Exam: Normal Cardiovascular: Positive: RRR, No Murmur, Pulses Normal Abdominal Exam: Normal Abdomen Description: Positive: Nontender, No Organomegaly, Soft. Negative: CVA Tenderness (R), CVA Tenderness (L) Bowel Sounds: Positive: Present Musculoskeletal Exam: Normal Musculoskeletal: Positive: Other: - no pain c/t/l/s + flex/ext knee + flex/ext ankle Neurological Exam: Normal Neurological: Positive: Alert, Muscle Tone Normal, Other: - 2+ patellar b/l - no clonus Psychological Exam: Normal Skin Exam: Normal Diagnostics - Radiology No standard instances Xray Interpretation: Positive (See Comments) - Patient Name: LILA PERDOMO Medical Record#: [id number] Ordering Physician: Julianne White MD Acct.#: [id number] : 1980 Age: 36 Sex: F Location: [facility] Exam Date: 07/20/171916 ADM Status: [facility] ER Order Information: CT ABD/PEL W/O Accession Number: [id number] CPT: 33403 Indication: Right flank pain. CT of the abdomen and pelvis was performed without oral or IV contrast administration. Coronal and sagittal reconstructed images were obtained. The study is limited due to body habitus. Lung bases demonstrate no pleural fluid, nodules or masses. Heart is of normal size without evidence of pericardial effusion. The liver demonstrates diffuse decrease in density consistent with hepatic steatosis. No intrahepatic ductal dilatation is noted. The patient status post cholecystectomy. The pancreas demonstrates no mass or pancreatic duct dilatation. Common duct is not dilated. Spleen is normal in size. There is a left adrenal mass measuring up to 3.5 cm. It is homogeneously low density and is likely due to an adrenal adenoma. This was present on previous exam of January 22, 2017 and is not significantly changed. The right adrenal gland is unremarkable. There is fullness of the right renal collecting system with suggestion of some mild periureteral infiltration of fat in the proximal right ureter. No focal dilatation is noted. There may be a small mildly calcified lesion in the urinary bladder which may represent a recently passed calculi. The left kidney demonstrates no hydronephrosis or hydroureter. CT of the pelvis demonstrates no retroperitoneal or pelvic lymphadenopathy. No dilated loops of bowel are noted. The colon is filled with stool. No free fluid is identified. The patient appears to be status post hysterectomy. IMPRESSION: There is mild periureteral right infiltration of fat with minimal distention of the right ureter. There is a faintly calcified lesion in the right urinary bladder close to the ureterovesicular junction and this may represent a recently passed calculi. Cholecystectomy and hysterectomy. Left adrenal mass stable likely representing an adenoma. Hepatic steatosis. <Electronically signed by Ailyn Mckinney MD in OV> 07/20/171957 Dictated By: Ailyn Mckinney MD Dictated Date/Time: 1957 Transcribed Date/Time: 07/20/171951 Radiology Interpretation Completed By: Radiologist Re-Evaluation - Re-Evaluation First Eval Re-Evaluation Time: 20:05 Change: Improved Comment: reviewed CT with pt including adrenal mass and possible stone. Lexa start cipro. hydrate. PCP f/u. urine culture. Pt comfortable and in agreement with plan Complaint Female Dx - Course Course Of Treatment: Pt with right back, flank pain as well as frequency and urgency. Pt with UTI - culture pending. Will check CT for stone. if neg, cipro - Differential Dx/Diagnosis Provider Diagnoses: UTI. kidney stone. back pain Discharge - Discharge Plan Condition: Stable Disposition: HOME Prescriptions: Ciprofloxacin HCl [Cipro 500 MG TAB] 500 mg PO BID #20 tab Patient Education Materials: Urinary Tract Infection in Women (ED), Kidney Stones (ED) Referrals: Delilah Gregory MD [Primary Care Provider] - Additional Instructions: - take antibiotics as prescribed until gone. Your urine is being sent for additional testing, if you need a different antibiotic, you will receive a call from our health care team - stay well hydrated - drink plenty of non-alcoholic, non-caffinated beverages -Okay to alternate ibuprofen (advil motrin) and tylenol every 3hours for pain - contact your doctor to schedule a follow-up appointment. Contact your doctor or return with questions or concerns
[2017-07-20] MEDS ORDERED: Acetaminophen TAB* 325 MG PO ONE (19:32)
--- NOTE | 2017-07-20 20:02 | RAD ---
Indication: Right flank pain. CT of the abdomen and pelvis was performed without oral or IV contrast administration. Coronal and sagittal reconstructed images were obtained. The study is limited due to body habitus. Lung bases demonstrate no pleural fluid, nodules or masses. Heart is of normal size without evidence of pericardial effusion. The liver demonstrates diffuse decrease in density consistent with hepatic steatosis. No intrahepatic ductal dilatation is noted. The patient status post cholecystectomy. The pancreas demonstrates no mass or pancreatic duct dilatation. Common duct is not dilated. Spleen is normal in size. There is a left adrenal mass measuring up to 3.5 cm. It is homogeneously low density and is likely due to an adrenal adenoma. This was present on previous exam of January 22, 2017 and is not significantly changed. The right adrenal gland is unremarkable. There is fullness of the right renal collecting system with suggestion of some mild periureteral infiltration of fat in the proximal right ureter. No focal dilatation is noted. There may be a small mildly calcified lesion in the urinary bladder which may represent a recently passed calculi. The left kidney demonstrates no hydronephrosis or hydroureter. CT of the pelvis demonstrates no retroperitoneal or pelvic lymphadenopathy. No dilated loops of bowel are noted. The colon is filled with stool. No free fluid is identified. The patient appears to be status post hysterectomy. IMPRESSION: There is mild periureteral right infiltration of fat with minimal distention of the right ureter. There is a faintly calcified lesion in the right urinary bladder close to the ureterovesicular junction and this may represent a recently passed calculi. Cholecystectomy and hysterectomy. Left adrenal mass stable likely representing an adenoma. Hepatic steatosis.
[2017-07-20] MEDS ORDERED: Ciprofloxacin TAB* 500 MG PO ONE (20:13)
== END 2017-07-20 20:30 | disposition home or self-care (01) ==
LOC: UCEAST 18:30
DX: N39.0 Urinary tract infection, site not specified (principal); N20.0 Calculus of kidney; M54.9 Dorsalgia, unspecified; Z32.02 Encounter for pregnancy test, result negative; Z90.49 Acquired absence of other specified parts of digestive tract; F17.210 Nicotine dependence, cigarettes, uncomplicated
CPT/HCPCS: 74176; 81003; 84702; 87077; 87086; 87186; 99212; A9270-GY; G0463

== ENCOUNTER 2018-09-01 15:56 | Emergency (ER) | payer OTHER ==
[2018-09-01] MEDS ORDERED: Albuterol/Ipratropium NEB.SOL* Albuterol 2.5 MG/Ipratropium 0.5 MG 3 ML INH ONE ×2 (17:06→17:34)
--- NOTE | 2018-09-01 17:28 | UC ---
Respiratory Complaint HPI - HPI Summary HPI Summary: Patient presents to urgent care reporting for progressive over the last 4-5 days she's had sinus pressure, post nasal drip, and cough productive yellow sputum. Patient states she feels a little short of breath with activity. Patient has a history have a history of asthma. Patient uses CPAP at night with oxygen. Patient states her last asthma exacerbation was approximately one year ago when she was hospitalized. Patient states upon discharge from this hospitalization she was on oxygen [id number] but that was the only time. Patient denies fevers or chills. Patient does report fatigue. No chest pain. No rashes. No abdominal pain. No nausea vomiting. Patient denies headache or vision changes. Patient has not used her nebulizer. Patient's last oral prednisone was a year ago. Patient denies . Pt's medications reviewed this visit - History of Current Complaint Chief Complaint: UCRespiratory Stated Complaint: RESP Time Seen by Provider: 09/01/18 17:27 Hx Obtained From: Patient Hx Last Menstrual Period: unknown ?: No Onset/Duration: Gradual Onset Timing: Constant Pain Intensity: 0 Character: Cough: Productive - Allergies/Home Medications Allergies/Adverse Reactions: Allergies Allergy/AdvReac Type Severity Reaction Status Date / Time No Known Allergies Allergy Verified 09/01/18 16:54 Home Medications: Home Medications Venlafaxine EXT RELEASE CAP* [Effexor Xr CAP*] 2 cap PO DAILY 09/01/18 [History Confirmed 09/01/18] PMH/Surg Hx/FS Hx/Imm Hx Previously Healthy: Yes Endocrine History: Diabetes - Surgical History Surgical History: Yes Surgery Procedure, Year, and Place: Tubal ligation. . cholecystectomy 2009 - Family History Known Family History: Positive: Cardiac Disease, Hypertension, Diabetes - Social History Lives: With Family Alcohol Use: Rare Substance Use Type: None Smoking Status (MU): Former Smoker Type: Cigarettes Amount Used/How Often: 1/2 ppd day or more Length of Time of Smoking/Using Tobacco: 20 years Have You Smoked in the Last Year: Yes When Did the Patient Quit Smoking/Using Tobacco: three months AGO Household Exposure Type: Cigarettes - Immunization History Most Recent Influenza Vaccination: fall 2015 Most Recent Tetanus Shot: within last 5 years Most Recent Pneumonia Vaccination: none Hx Tetanus, Diphtheria Vaccination: - Patient is unsure Review of Systems Constitutional: Negative ENT: Nasal Discharge, Sinus Congestion Respiratory: Cough All Other Systems Reviewed And Are Negative: Yes Physical Exam - Summary Physical Exam Summary: Vital Signs Reviewed: Yes A+Ox3, no distress Eyes: Conjunctiva Clear, DALLIN. EOM intact and full ENT: Hearing grossly normal TM x 2 clear, mmoist, uvula midline, no exudate, no erythema Neck: Positive: Supple Respiratory: scattered inspiratory and expiratory wheeze, no accessory muscle use speaking full sentences with intermittent coarse cough Cardiovascular: RRR nl s1, s2 no m/r CBT <2 sec abd soft + BS nt/nd no guarding, no distension Musculoskeletal Exam: TURCIOS x 4 without difficulty Strength Intact, ROM Intact Neurological: Positive: Alert, + sensation throughout Psychological: Positive: Normal Response To Family Skin: Positive: no rash, no ecchymosis Triage Information Reviewed: Yes Vital Signs: Initial Vital Signs Temp 98.6 F 09/01/18 16:47 Pulse 104 09/01/18 16:47 Resp 22 09/01/18 16:47 Pulse Ox 89 09/01/18 16:47 UC Diagnostic Evaluation - Laboratory O2 Sat by Pulse Oximetry: 89 - Radiology Radiology Interpretation Completed By: Radiologist - Patient Name: LILA PERDOMO Medical Record#: [id number] Re-Evaluation - Re-Evaluation First Eval Comment: Pt states feels better after neb. CXR no acute process. pt continues to have low sats on RA - >90 on 2 L. pt adamantly doesn't want to go by EMS. family drove her. Pt's family will bring her portable oxygen to urgent care. Pt will go POV - rib puller with any changes. Spoke to Karen Machuca at ED - aware of pt. Spoke to silk screen repairer (Valente)- aware of pt - will notify triage Respiratory Course/Dx - Course Course Of Treatment: Pt presents to ED reporting progressive sinus congestion, PND, cough and wheeze. Pt with h/o asthma 0- has not been using her neb. Pt has oxygen at home and uses at night. Last asthma exacerbation - pt was put on oxygen ATC. Pt states feels little wheezing and tight with breath. Pt noted to have low oxygen sats on RA. With oxygen 92-93. Will give neb, prednisone, cxr and close reassessment. Pt noted to have decreased sats at triage. will give duoneb, cxr, and prednisone. If doesn't improve will transfer to ED. Pt aware and in agreement with plan - Differential Dx/Diagnosis Provider Diagnoses: asthma exacerbation Discharge - Sign-Out/Discharge Documenting (check all that apply): Patient Departure All imaging exams completed and their final reports reviewed: Yes - Discharge Plan Condition: Fair Disposition: HOME-RECOMMEND TO ED Patient Education Materials: Asthma (ED) Referrals: Delilah Gregory MD [Primary Care Provider] - Additional Instructions: - the doctor that evaluates you recommends you go directly to the emergency department for further evaluation and treatment. you MUST wear you oxygen at 2 liters until you are re-evaluated. The care team at the emergency department is expecting you - please make sure you tell them at the check in desk that you were sent from urgent care on oxygen. If your symptoms worse, you develop increased shortness of breath, lightheadedness, chest pain or ANY other concerns rib puller and call 911 - Billing Disposition and Condition Condition: FAIR Disposition: Home-Recommend to ED
[2018-09-01] MEDS ORDERED: predniSONE TAB* 20 MG PO ONE (17:34)
--- NOTE | 2018-09-01 18:07 | RAD ---
INDICATION: Cough, wheeze and hypoxia COMPARISON: Most recent comparison chest x-rays dated January 22, 2017 TECHNIQUE: PA and lateral views of the chest were obtained. FINDINGS: The heart and mediastinum are normal in size and contour. The lungs are grossly clear. There is no evidence of large pleural effusion. Visualized bones are normal for the patient's age. There is no radiographic evidence of free air beneath the diaphragm IMPRESSION: No radiographic evidence of acute cardiopulmonary disease.
== END 2018-09-01 18:55 | disposition home health service (06) ==
LOC: UCEAST 15:56
DX: J45.901 Unspecified asthma with (acute) exacerbation (principal); Z87.891 Personal history of nicotine dependence
CPT/HCPCS: 71046; 99213; A9270-GY; G0463; J7512

== ENCOUNTER 2018-09-01 19:11 | Inpatient (IN) | payer OTHER ==
[2018-09-01] MEDS ORDERED: Magnesium Sulfate 2 GM IV* 2 GM/50 ML BAG IVPB ONE (20:04)
[2018-09-01] MEDS ORDERED: Albuterol/Ipratropium NEB.SOL* Albuterol 2.5 MG/Ipratropium 0.5 MG 3 ML INH ONE (20:05)
[2018-09-01 20:19] LABS: ABS Basophils 0 10^3/ul (0-0.2); ABS Eosinophils 0 10^3/ul (0-0.6); ABS Lymphocytes 0.8 10^3/ul (1.0-4.8); ABS Monocytes 0.4 10^3/ul (0-0.8); ABS Neutrophils 5.3 10^3/ul (1.5-7.7); ABS Nucleated RBC 0 10^3/ul; Eosinophil % 0.6 % (0-6); Hematocrit 47 % (35-47); Hemoglobin 15.6 g/dl (12.0-16.0); Lymphocyte % 12.5 % (25-47); Mean Corpuscular HGB Conc 33 g/dl (31-36); Mean Corpuscular Hemoglobin 32 pg (27-31); Mean Corpuscular Volume 97 fL (80-97); Mean Platelet Volume 8.6 um3 (7.4-10.4); Nucleated Red Blood Cells % 0.1; Platelet Count 177 10^3/ul (150-450); Red Blood Count 4.84 10^6/ul (4.00-5.40); Red Cell Distribution Width 15 % (10.5-15); White Blood Count 6.6 10^3/ul (3.5-10.8)
[2018-09-01 20:36] LABS: EGFR Non-African American 74.9 (>60)
--- NOTE | 2018-09-01 20:56 | ED ---
Respiratory - HPI Summary HPI Summary: 37-year-old female with past medical history of asthma and sleep apnea presents with cough for the past 4 days. States that she's been having productive cough. She also admits to sinus pressure and postnasal drip. States she's been having increasing shortness breath on activity. She states that she normally is on O2 only at night for her sleep apnea. She states that she has not had any fevers. She denies any bowel pain. No nausea and vomiting. She was seen in convenient care today and given oral steroid and nebulizer treatments without relief. Her O2 sats on room air are in the 80s. She states that she was admitted a year ago for asthma. She is also diabetic. - History of Current Complaint Chief Complaint: EDUpperRespComplaint Stated Complaint: CONGESTION/COUGH Time Seen by Provider: 09/01/18 20:01 Pain Intensity: 0 Sputum Amount: None - Allergy/Home Medications Allergies/Adverse Reactions: Allergies Allergy/AdvReac Type Severity Reaction Status Date / Time No Known Allergies Allergy Verified 09/01/18 16:54 PMH/Surg Hx/FS Hx/Imm Hx Endocrine/Hematology History: Reports: Hx Diabetes Cardiovascular History: Denies: Hx Hypertension Respiratory History: Reports: Hx Asthma - O2 at night, Hx Sleep Apnea, Other Respiratory Problems/Disorders - 02 AT NIGHT 2L/min GI History: Reports: Hx Gall Bladder Disease - removed, Hx Gastroesophageal Reflux Disease Musculoskeletal History: Reports: Other Musculoskeletal History - degenerative disc disease Sensory History: Reports: Hx Contacts or Glasses Opthamlomology History: Reports: Hx Contacts or Glasses Neurological History: Reports: Hx Migraine, Other Neuro Impairments/Disorders - pinched sciatic nerve occasionally, r/t DDD Psychiatric History: Reports: Hx Anxiety, Hx Depression - Surgical History Surgery Procedure, Year, and Place: Tubal ligation. . cholecystectomy 2009 - Immunization History Date of Influenza Vaccine: 08/22/16 Infectious Disease History: No Infectious Disease History: Denies: Hx Clostridium Difficile, Hx Hepatitis, Hx Human Immunodeficiency Virus (HIV), Hx of Known/Suspected MRSA, Hx Shingles, Hx Tuberculosis, Hx Known/ Suspected VRE, Hx Known/Suspected VRSA, History Other Infectious Disease, Traveled Outside the [place] in Last 30 Days - Family History Known Family History: Positive: Cardiac Disease, Hypertension, Diabetes - Social History Alcohol Use: Rare Substance Use Type: Reports: None Hx Tobacco Use: No Smoking Status (MU): Former Smoker Type: Cigarettes Amount Used/How Often: 1/2 ppd day or more Length of Time of Smoking/Using Tobacco: 20 years Have You Smoked in the Last Year: Yes Review of Systems Negative: Fever Positive: Nasal Discharge Negative: Chest Pain Positive: Shortness Of Breath, Cough All Other Systems Reviewed And Are Negative: Yes Physical Exam Triage Information Reviewed: Yes Vital Signs On Initial Exam: Initial Vitals Temp Pulse Resp BP Pulse Ox 97.9 F 100 15 170/106 85 09/01/18 19:20 09/01/18 19:20 09/01/18 19:20 09/01/18 19:20 09/01/18 19:20 Vital Signs Reviewed: Yes Appearance: Positive: Well-Appearing Skin: Positive: Warm, Dry Head/Face: Positive: Normal Head/Face Inspection Eyes: Positive: Normal, EOMI, DALLIN, Conjunctiva Clear ENT: Positive: Normal ENT inspection, Pharynx normal, Nasal congestion, TMs normal Respiratory/Lung Sounds: Positive: Decreased Breath Sounds, Wheezes Cardiovascular: Positive: Normal, RRR Abdomen Description: Positive: Nontender, Soft Bowel Sounds: Positive: Present Musculoskeletal: Positive: Normal Neurological: Positive: Normal Psychiatric: Positive: Normal Diagnostics - Vital Signs Vital Signs Temp Pulse Resp BP Pulse Ox 09/01/18 20:37 100 16 95 09/01/18 19:20 97.9 F 100 15 170/106 85 - Laboratory Lab Results: Lab Results 09/01/18 09/01/18 09/01/18 Range/Units 20:13 20:13 20:30 WBC 6.6 (3.5-10.8) 10^3/ul RBC 4.84 (4.00-5.40) 10^6/ul Hgb 15.6 (12.0-16.0) g/dl Hct 47 (35-47) % MCV 97 (80-97) fL MCH 32 H (27-31) pg MCHC 33 (31-36) g/dl RDW 15 (10.5-15) % Plt Count 177 (150-450) 10^3/ul MPV 8.6 (7.4-10.4) um3 Neut % (Auto) 80.2 (38-83) % Lymph % (Auto) 12.5 L (25-47) % [place] % (Auto) 6.1 (0-7) % Eos % (Auto) 0.6 (0-6) % Baso % (Auto) 0.6 (0-2) % Absolute Neuts (auto) 5.3 (1.5-7.7) 10^3/ul Absolute Lymphs (auto) 0.8 L (1.0-4.8) 10^3/ul Absolute Monos (auto) 0.4 (0-0.8) 10^3/ul Absolute Eos (auto) 0 (0-0.6) 10^3/ul Absolute Basos (auto) 0 (0-0.2) 10^3/ul Absolute Nucleated RBC 0 10^3/ul Nucleated RBC % 0.1 D-Dimer, Quantitative 240 H (Less Than 230) ng/mL Sodium 137 (135-145) mmol/L Potassium 3.8 (3.5-5.0) mmol/L Chloride 99 L (101-111) mmol/L Carbon Dioxide 31 (22-32) mmol/L Anion Gap 7 (2-11) mmol/L BUN 7 (6-24) mg/dL Creatinine 0.85 (0.51-0.95) mg/dL Est GFR ( Amer) 90.6 (>60) Est GFR (Non-Af Amer) 74.9 (>60) BUN/Creatinine Ratio 8.2 (8-20) Glucose 159 H (70-100) mg/dL Calcium 9.3 (8.6-10.3) mg/dL Magnesium 1.8 L (1.9-2.7) mg/dL Total Bilirubin 0.60 (0.2-1.0) mg/dL AST 31 (13-39) U/L ALT 16 (7-52) U/L Alkaline Phosphatase 100 (34-104) U/L Total Protein 7.4 (6.4-8.9) g/dL Albumin 4.0 (3.2-5.2) g/dL Globulin 3.4 (2-4) g/dL Albumin/Globulin Ratio 1.2 (1-3) Beta HCG, Quant 1.74 mIU/mL Result Diagrams: 09/01/18 20:13 09/01/18 20:13 Lab Statement: Any lab studies that have been ordered have been reviewed, and results considered in the medical decision making process. - CT cta CT Interpretation: No Acute Changes CT Interpretation Completed By: Radiologist Re-Evaluation - Re-Evaluation First Eval Re-Evaluation Time: 20:56 Change: Improved Second Eval Re-Evaluation Time: 21:27 Change: Unchanged Comment: 02 stats drop to 90 without o2 Third Eval Re-Evaluation Time: 22:20 Change: Unchanged Comment: now required 6 liters of O2 Disposition - Course Course Of Treatment: 37-year-old female with past medical history of asthma and sleep apnea presents with cough for the past 4 days. States that she's been having productive cough. She also admits to sinus pressure and postnasal drip. States she's been having increasing shortness breath on activity. She states that she normally is on O2 only at night for her sleep apnea. She states that she has not had any fevers. She denies any bowel pain. No nausea and vomiting. She was seen in convenient care today and given oral steroid and nebulizer treatments without relief. Her O2 sats on room air are in the 80s. She states that she was admitted a year ago for asthma. On exam has decreased breath sounds and wheezing present. Chest x-ray at urgent care was normal. Labs without significant abnormality. D-dimer elevated so got CTA. CTA was normal. Gave 2 doses steroid and magnesium and O2 sats still without oxygen are in the 80s. dr quintana agrees to admit. - Differential Dx - Cardiopulmonary Differential Diagnoses - Cardiopulmonary: Asthma, Influenza, Lower Resp Infection - Diagnoses Provider Diagnoses: Asthma exacerbation Discharge - Sign-Out/Discharge Documenting (check all that apply): Patient Departure - Discharge Plan Condition: Stable Disposition: ADMITTED TO [facility] Referrals: Delilah Gregory MD [Primary Care Provider] - - Billing Disposition and Condition Condition: STABLE Disposition: Admitted to [facility]
[2018-09-01] MEDS ORDERED: Iodixanol* (CONTRAST) 320 MG/ML 100 ML SDV IV ONE (21:13)
[2018-09-01] MEDS ORDERED: Albuterol 2.5 MG/3 ML NEB.SOL* (0.083%) INH ONE (21:28)
[2018-09-01] MEDS ORDERED: methylPREDNISolone 125 MG* 2 ML VIAL IV ONE (22:00)
--- NOTE | 2018-09-01 22:10 | RAD ---
EXAM: CT Angiography Chest With Intravenous Contrast EXAM DATE/TIME: 09/01/2018 9:15 PM CLINICAL HISTORY: 37 years old, female; Signs and symptoms; Shortness of breath; Additional info: SOB TECHNIQUE: Axial computed tomographic angiography images of the chest with intravenous contrast using CT angiography protocol. All CT scans at this facility use at least one of these dose optimization techniques: automated exposure control; mA and/or kV adjustment per patient size (includes targeted exams where dose is matched to clinical indication); or iterative reconstruction. Coronal and sagittal reformatted images were created and reviewed. MIP reconstructed images were created and reviewed. CONTRAST: 96 ml of VISIPAQUE 320 administered intravenously. COMPARISON: CTA CHEST CTA CHEST 01/22/2017 6:09 PM FINDINGS: Pulmonary arteries: Normal. No pulmonary emboli. Aorta: Normal. No aortic aneurysm. No aortic dissection. Lungs: Bilateral lung cysts, without appreciable change from comparison study. Pleural space: Normal. No pneumothorax. No pleural effusion. Heart: Normal. No cardiomegaly. No pericardial effusion. Bones/joints: Degenerative changes of the thoracolumbar spine. Soft tissues: Unremarkable. Lymph nodes: Unremarkable. No enlarged lymph nodes. Adrenals: Large left adrenal lesion measuring 35 mm and without appreciable change from comparison study. IMPRESSION: 1. No acute findings in the chest. 2. Stable large left adrenal lesion. ACR White Paper guidelines ([place], et al. JACR 2010; 7(10):754-54) suggest that no follow-up is necessary. To contact [facility] with a general question: [facility] - [phone] For direct physician to physician contact: Physician Hotline - [phone] [facility] ([facility] Facility ID #[id number])
[2018-09-02] MEDS ORDERED: Acetaminophen TAB* 325 MG PO PRN (00:47)
[2018-09-02] MEDS ORDERED: Albuterol/Ipratropium NEB.SOL* Albuterol 2.5 MG/Ipratropium 0.5 MG 3 ML INH PRN (00:47)
[2018-09-02] MEDS ORDERED: HYDROcodone/ACETAMIN 5-325 MG* 1 TAB PO PRN (00:49)
[2018-09-02] MEDS ORDERED: Albuterol HFA INHALER* 8 gm MDI INH PRN (00:49)
[2018-09-02] MEDS ORDERED: Cyclobenzaprine TAB* 10 MG PO PRN (00:49)
[2018-09-02] MEDS ORDERED: guaiFENesin ER TAB 600 MG PO ONE (00:52)
[2018-09-02] MEDS ORDERED: NS 0.9% 1000 ML* 1,000 ML IV SCH (01:00)
[2018-09-02] MEDS ORDERED: Albuterol 2.5 MG/3 ML NEB.SOL* (0.083%) INH SCH (01:00)
[2018-09-02] MEDS ORDERED: Levofloxacin TAB* 250 MG PO SCH (01:00)
[2018-09-02] MEDS ORDERED: Albuterol 2.5 MG/3 ML NEB.SOL* (0.083%) INH PRN (02:04)
[2018-09-02 05:19] LABS: ABS Basophils 0 10^3/ul (0-0.2); ABS Eosinophils 0 10^3/ul (0-0.6); ABS Lymphocytes 0.4 10^3/ul (1.0-4.8); ABS Monocytes 0.1 10^3/ul (0-0.8); ABS Neutrophils 4.7 10^3/ul (1.5-7.7); ABS Nucleated RBC 0 10^3/ul; Eosinophil % 0 % (0-6); Hematocrit 47 % (35-47); Hemoglobin 15.8 g/dl (12.0-16.0); Lymphocyte % 8.5 % (25-47); Mean Corpuscular HGB Conc 34 g/dl (31-36); Mean Corpuscular Hemoglobin 33 pg (27-31); Mean Corpuscular Volume 97 fL (80-97); Mean Platelet Volume 8.6 um3 (7.4-10.4); Nucleated Red Blood Cells % 0.6; Platelet Count 192 10^3/ul (150-450); Red Blood Count 4.83 10^6/ul (4.00-5.40); Red Cell Distribution Width 14 % (10.5-15); White Blood Count 5.2 10^3/ul (3.5-10.8)
[2018-09-02 05:33] LABS: EGFR Non-African American 96.8 (>60)
[2018-09-02] MEDS ORDERED: Azithromycin TAB* 250 MG PO ONE (06:20)
[2018-09-02] MEDS: Albuterol 2.5 MG/3 ML NEB.SOL* (0.083%) INH SCH ×2 (06:25→07:25)
[2018-09-02] MEDS ORDERED: Pneumococcal *Vac Polyvalent 0.5 ML VIAL IM ONE (08:00)
[2018-09-02] MEDS: methylPREDNISolone TAB* 8 MG - DAY 1 0800,2100 PO SCH ×2 (10:12→22:01)
[2018-09-02] MEDS: Venlafaxine EXT RELEASE CAP* 37.5 MG PO SCH (10:13)
[2018-09-02] MEDS: Gabapentin CAP(*) 300 MG PO SCH ×2 (10:14→22:02)
[2018-09-02] MEDS: buPROPion SR TAB.SR* 150 MG PO SCH ×2 (10:14→22:01)
[2018-09-02] MEDS: Omeprazole CAP* 20 MG PO SCH (10:15)
[2018-09-02] MEDS: metFORMIN* 1,000 MG TAB PO SCH ×2 (10:16→22:01)
[2018-09-02] MEDS: Heparin VIAL(*) 5000 UNITS/ML VIAL (FIVE THOUSAND) SUBCUT SCH ×2 (10:16→22:02)
--- NOTE | 2018-09-02 11:52 | ADMNOTE ---
Subjective Date of Service: 09/02/18 Interval History: this is h/p for admission hpi 37 yr old morbid obesity presented to er with c/o sob and coughing up yellowish sputum for 4-5 days went to local urgent then refer to er from [facility]. she got heavy doses of solumderol and multiple different resp treatement hx of candice but could not tolerated with candice ---> noturnal oxygen support pt was given multiple doses of resp treatment and steroid but oxygen sat was 88 percent in urgent ---> sent to er to eval sat low 90s on 5 liter oxygen Family History: Findings - htn Social History: Findings - cig smoker 0.5-1 ppd no etoh no ivda caregiver to sister Past Medical History: Findings - phx morbid obesity htn asthma never intubated prior only had one excerbation prior candice unable to tolerte cpap on nocturnal oxygen only type 2 dm pxhs c sectoin s/p b/l tubilgtion s/p sanket Review of Systems - Measurements Intake and Output: Intake and Output Last 24 Hours 08/31/18 09/01/18 09/02/18 09/03/18 06:59 06:59 06:59 06:59 Intake Total 448 350 Balance 448 350 Weight 410 lb 4.8 oz Intake: IV Fluids 448 NS 0.9% 398 Oral 350 Objective Active Medications: Acetaminophen (Tylenol Tab*) 650 mg PO Q4H PRN PRN Reason: FEVER/PAIN Hydrocodone Bitart/Acetaminophen ([place] 5-325 Tab*) 1 tab PO Q6H PRN PRN Reason: PAIN Albuterol (Ventolin Hfa Inhaler*) 2 puff INH Q4H PRN PRN Reason: SOB/WHEEZING Albuterol (Ventolin 2.5 Mg/3 Ml Neb.Rosibel*) 2.5 mg INH Q4H PRN PRN Reason: SOB/WHEEZING Albuterol/Ipratropium (Duoneb (Albuterol 2.5 Mg/Ipratropium 0.5 Mg)) 1 neb INH [id number] AWAKE PRN PRN Reason: sob/wheexing Azithromycin (Zithromax Tab*) 250 mg PO DAILY [facility] Stop: 09/06/18 09:01 Bupropion HCl (Wellbutrin Sr Tab*) 150 mg PO BID [facility] Last Admin: 09/02/18 10:14 Dose: 150 mg Cyclobenzaprine HCl (Flexeril Tab*) 10 mg PO BID PRN PRN Reason: SPASMS Gabapentin (Neurontin Cap(*)) 300 mg PO BID [facility] Last Admin: 09/02/18 10:14 Dose: 300 mg Heparin Sodium (Porcine) (Heparin Vial(*)) 5,000 units SUBCUT Q12HR [facility] Last Admin: 09/02/18 10:16 Dose: 5,000 units Levofloxacin (Levaquin Tab*) 750 mg PO Q24H [facility] Last Admin: 09/02/18 01:57 Dose: 750 mg Metformin HCl (Glucophage*) 1,000 mg PO BID [facility] Last Admin: 09/02/18 10:16 Dose: 1,000 mg Methylprednisolone (Medrol Tab*) 8 mg PO 0800,2100 [facility] Stop: 09/02/18 23:59 Last Admin: 09/02/18 10:12 Dose: 8 mg Methylprednisolone (Medrol Tab*) 4 mg PO 1300,1800 [facility] Stop: 09/02/18 23:59 Methylprednisolone (Medrol Tab*) 4 mg PO 0700,1300,1800 [facility] Stop: 09/03/18 23:59 Methylprednisolone (Medrol Tab*) 8 mg PO 2100 [facility] Stop: 09/03/18 23:59 Methylprednisolone (Medrol Tab*) 4 mg PO 0700,1300,1800,2100 [facility] Stop: 09/04/18 23:59 Methylprednisolone (Medrol Tab*) 4 mg PO 0700,1300,2100 [facility] Stop: 09/05/18 23:59 Methylprednisolone (Medrol Tab*) 4 mg PO 0700,2100 [facility] Stop: 09/06/18 23:59 Methylprednisolone (Medrol Tab*) 4 mg PO 0700 [facility] Stop: 09/07/18 13:00 Omeprazole (Prilosec Cap*) 40 mg PO DAILY [facility] Last Admin: 09/02/18 10:15 Dose: 40 mg Venlafaxine HCl (Effexor Xr Cap*) 75 mg PO DAILY [facility] Last Admin: 09/02/18 10:13 Dose: 75 mg Vital Signs - 8 hr 09/02/18 09/02/18 07:25 10:14 Temperature 97.5 F Pulse Rate 83 Respiratory 22 22 Rate Blood Pressure 137/81 (mmHg) O2 Sat by Pulse 93 Oximetry Oxygen Devices in Use Now: Nasal Cannula Result Diagrams: 09/02/18 05:09 09/03/18 07:17 Additional Lab and Data: Lab Results 09/01/18 09/01/18 09/01/18 Range/Units 20:13 20:13 20:30 WBC 6.6 (3.5-10.8) 10^3/ul RBC 4.84 (4.00-5.40) 10^6/ul Hgb 15.6 (12.0-16.0) g/dl Hct 47 (35-47) % MCV 97 (80-97) fL MCH 32 H (27-31) pg MCHC 33 (31-36) g/dl RDW 15 (10.5-15) % Plt Count 177 (150-450) 10^3/ul MPV 8.6 (7.4-10.4) um3 Neut % (Auto) 80.2 (38-83) % Lymph % (Auto) 12.5 L (25-47) % [place] % (Auto) 6.1 (0-7) % Eos % (Auto) 0.6 (0-6) % Baso % (Auto) 0.6 (0-2) % Absolute Neuts (auto) 5.3 (1.5-7.7) 10^3/ul Absolute Lymphs (auto) 0.8 L (1.0-4.8) 10^3/ul Absolute Monos (auto) 0.4 (0-0.8) 10^3/ul Absolute Eos (auto) 0 (0-0.6) 10^3/ul Absolute Basos (auto) 0 (0-0.2) 10^3/ul Absolute Nucleated RBC 0 10^3/ul Nucleated RBC % 0.1 D-Dimer, Quantitative 240 H (Less Than 230) ng/mL Sodium 137 (135-145) mmol/L Potassium 3.8 (3.5-5.0) mmol/L Chloride 99 L (101-111) mmol/L Carbon Dioxide 31 (22-32) mmol/L Anion Gap 7 (2-11) mmol/L BUN 7 (6-24) mg/dL Creatinine 0.85 (0.51-0.95) mg/dL Est GFR ( Amer) 90.6 (>60) Est GFR (Non-Af Amer) 74.9 (>60) BUN/Creatinine Ratio 8.2 (8-20) Glucose 159 H (70-100) mg/dL Calcium 9.3 (8.6-10.3) mg/dL Magnesium 1.8 L (1.9-2.7) mg/dL Total Bilirubin 0.60 (0.2-1.0) mg/dL AST 31 (13-39) U/L ALT 16 (7-52) U/L Alkaline Phosphatase 100 (34-104) U/L Total Protein 7.4 (6.4-8.9) g/dL Albumin 4.0 (3.2-5.2) g/dL Globulin 3.4 (2-4) g/dL Albumin/Globulin Ratio 1.2 (1-3) Beta HCG, Quant 1.74 mIU/mL Microbiology and Other Data: Microbiology 09/01/18 20:52 Gram Stain - Final Sputum Assess/Plan/Problems-Billing Assessment: 37 yr old presented to er due to bronchitis with resultant of asthma exceerbation initial cta neg pt was found to have hypoxia with sat 88 ra went to 90s on 5 liter/min - Patient Problems (1) Hypoxia Current Visit: Yes Status: Acute Code(s): R09.02 - HYPOXEMIA SNOMED Code(s ): 105071363 Comment: will titrate oxygen off as tolerated hold ivf due to steroid may increase volume ---> if oxygen is not coming up might consider low dose of lasix once to diuresis her to sat better - ck pulse oxy upon ambuation may need oxygen to go home for a short period (2) Asthma Current Visit: Yes Status: Acute Code(s): J45.909 - UNSPECIFIED ASTHMA, UNCOMPLICATED SNOMED Code(s): 147709097 Comment: her ashtma excerbation could be related to uderlying hypoexpansion of lung field and occult bronchitis albuterol prn mucinex z pack medrodose pack (3) Cigarette smoker Current Visit: Yes Status: Acute Code(s): F17.210 - NICOTINE DEPENDENCE, CIGARETTES, UNCOMPLICATED SNOMED Code(s): 47235505 Comment: not ready to quit supportive care (4) Morbid obesity Current Visit: Yes Status: Acute Code(s): E66.01 - MORBID (SEVERE) OBESITY DUE TO EXCESS CALORIES SNOMED Code(s): 567236461 Comment: will need to f/u with pcp ---> candidate for gastric bypass (5) Depression Current Visit: No Status: Acute Code(s): F32.9 - MAJOR DEPRESSIVE DISORDER, SINGLE EPISODE, UNSPECIFIED SNOMED Code(s): 12163577 Comment: stable Status and Disposition: asthma excerabation +- bronchitis normal wbc -a pack - albuterol + mucinex + z pack
[2018-09-02] MEDS: methylPREDNISolone TAB* 4 MG - DAY 1 1300,1800 PO SCH ×2 (14:51→17:54)
--- NOTE | 2018-09-02 17:33 | PN ---
Hospitalist Progress Note Date of Service: 09/02/18 Patient seen and examined at bedside. Care reviewed and d/w Kevin Curtis RN. She feels better today, breathing is much easier. Chest: BS+ bilaterally decreased, no added sounds. Incidental finding of adrenal mass - check ACTH, random cortisol, renin, aldosterone. Will need further w/u as outpatient. She's supermorbid obese, but may have some Kushal's features.
[2018-09-03] MEDS: Gabapentin CAP(*) 300 MG PO SCH ×2 (09:29→20:59)
[2018-09-03] MEDS: buPROPion SR TAB.SR* 150 MG PO SCH ×2 (09:29→20:59)
[2018-09-03] MEDS: Omeprazole CAP* 20 MG PO SCH (09:29)
[2018-09-03] MEDS: Heparin VIAL(*) 5000 UNITS/ML VIAL (FIVE THOUSAND) SUBCUT SCH ×2 (09:29→21:02)
[2018-09-03] MEDS: metFORMIN* 1,000 MG TAB PO SCH ×2 (09:29→20:58)
[2018-09-03] MEDS: Venlafaxine EXT RELEASE CAP* 37.5 MG PO SCH (09:30)
[2018-09-03] MEDS: methylPREDNISolone TAB* 4 MG - DAY 2 0700,1300,1800 PO SCH ×3 (09:30→17:47)
[2018-09-03] MEDS: Azithromycin TAB* 250 MG PO SCH (09:30)
--- NOTE | 2018-09-03 14:01 | PN ---
Subjective Date of Service: 09/03/18 Interval History: HOSPITALIST PROGRESS NOTE Patient seen and examined at bedside. Care reviewed and d/w Kevin Mendes RN. She is more dyspneic today. Cough is unchanged. Family History: Unchanged from Admission Social History: Unchanged from Admission Past Medical History: Unchanged from Admission Objective Active Medications: Acetaminophen (Tylenol Tab*) 650 mg PO Q4H PRN PRN Reason: FEVER/PAIN Hydrocodone Bitart/Acetaminophen ([place] 5-325 Tab*) 1 tab PO Q6H PRN PRN Reason: PAIN Albuterol (Ventolin Hfa Inhaler*) 2 puff INH Q4H PRN PRN Reason: SOB/WHEEZING Albuterol (Ventolin 2.5 Mg/3 Ml Neb.Rosibel*) 2.5 mg INH Q4H PRN PRN Reason: SOB/WHEEZING Albuterol/Ipratropium (Duoneb (Albuterol 2.5 Mg/Ipratropium 0.5 Mg)) 1 neb INH [id number] AWAKE PRN PRN Reason: sob/wheexing Azithromycin (Zithromax Tab*) 250 mg PO DAILY [facility] Stop: 09/06/18 09:01 Last Admin: 09/03/18 09:30 Dose: 250 mg Bupropion HCl (Wellbutrin Sr Tab*) 150 mg PO BID [facility] Last Admin: 09/03/18 09:29 Dose: 150 mg Cyclobenzaprine HCl (Flexeril Tab*) 10 mg PO BID PRN PRN Reason: SPASMS Gabapentin (Neurontin Cap(*)) 300 mg PO BID [facility] Last Admin: 09/03/18 09:29 Dose: 300 mg Heparin Sodium (Porcine) (Heparin Vial(*)) 5,000 units SUBCUT Q12HR [facility] Last Admin: 09/03/18 09:29 Dose: 5,000 units Metformin HCl (Glucophage*) 1,000 mg PO BID [facility] Last Admin: 09/03/18 09:29 Dose: 1,000 mg Methylprednisolone (Medrol Tab*) 4 mg PO 0700,1300,1800 [facility] Stop: 09/03/18 23:59 Last Admin: 09/03/18 09:30 Dose: 4 mg Methylprednisolone (Medrol Tab*) 8 mg PO 2100 [facility] Stop: 09/03/18 23:59 Methylprednisolone (Medrol Tab*) 4 mg PO 0700,1300,1800,2100 [facility] Stop: 09/04/18 23:59 Methylprednisolone (Medrol Tab*) 4 mg PO 0700,1300,2100 [facility] Stop: 09/05/18 23:59 Methylprednisolone (Medrol Tab*) 4 mg PO 0700,2100 [facility] Stop: 09/06/18 23:59 Methylprednisolone (Medrol Tab*) 4 mg PO 0700 [facility] Stop: 09/07/18 13:00 Omeprazole (Prilosec Cap*) 40 mg PO DAILY [facility] Last Admin: 09/03/18 09:29 Dose: 40 mg Venlafaxine HCl (Effexor Xr Cap*) 75 mg PO DAILY [facility] Last Admin: 09/03/18 09:30 Dose: 75 mg Vital Signs - 8 hr 09/03/18 09/03/18 09/03/18 09:29 09:41 12:40 Respiratory 16 22 Rate O2 Sat by Pulse 86 Oximetry Oxygen Devices in Use Now: Nasal Cannula Appearance: Supermorbid obese patient sitting in bed in NAD. Eyes: No Scleral Icterus Ears/Nose/Mouth/Throat: Mucous Membranes Moist Neck: Trachea Midline Respiratory: Symmetrical Chest Expansion and Respiratory Effort, - - BS+ bilaterally with bilateral rhonchi and wheezes, especially bases Cardiovascular: RRR - Normal S1 and S2 Neurological: Alert and Oriented x 3, NL Muscle Strength and Tone Result Diagrams: 09/02/18 05:09 09/03/18 07:17 Assess/Plan/Problems-Billing Assessment: Mrs Flores is a 37 yo F with PMH of supermorbid obesity with BMI>70, SHARMILA on nocturnal O2, HTN, asthma, type 2 DM, tobacco abuse, who presented to ED with dyspnea and hypoxia secondary to bronchitis/asthma excerbation. - Patient Problems (1) Acute hypoxemic respiratory failure Comment: - Acute on chronic respiratory failure. Patient on nocturnal supplemental O2 for SHARMILA. Suspect a component of obesity hypoventilation too. - Now acute in the setting of asthma exacerbation. (2) Asthma exacerbation Comment: - Feels better, but her lungs sound worse today. - Continue Azithromycin, steroid taper, bronchodilators. (3) Morbid obesity Comment: - Will benefit of [facility] referral on discharge. (4) Type II diabetes mellitus Comment: - Controlled with A1c 6.7%. - Continue metformin. - Add Lispro SS while on steroids. (5) Adrenal tumor Comment: - Incidental finding of left adrenal tumor on CTA. - She does have some cushingoid features (central obesity, stretch kaiser, "buffalo hump") but these may be secondary to her supermorbid obesity. - Will check ACTH, cortisol, renin, aldosterone - may need further w/u as outpatient. (6) DVT prophylaxis Comment: - SQ heparin. (7) Full code status Status and Disposition: Inpatient.
[2018-09-03] MEDS ORDERED: Dextrose 50% Syringe 50 ML* 25 GM/50 ML SYRINGE IV PUSH PRN (14:14)
[2018-09-03] MEDS: Insulin LISPRO* 1 UNITS UNIT SUBCUT SCH ×2 (16:52→21:00)
[2018-09-03] MEDS ORDERED: methylPREDNISolone TAB* 8 MG - DAY 2 2100 PO SCH (21:00)
[2018-09-04] MEDS ORDERED: methylPREDNISolone TAB* 4 MG - DAY 3 0700,1300,1800,2100 PO SCH (07:00)
[2018-09-04 08:18] VITALS: BP 143/88
[2018-09-04] MEDS: Gabapentin CAP(*) 300 MG PO SCH (08:26)
[2018-09-04] MEDS: metFORMIN* 1,000 MG TAB PO SCH (08:26)
[2018-09-04] MEDS: Omeprazole CAP* 20 MG PO SCH (08:26)
[2018-09-04] MEDS: Azithromycin TAB* 250 MG PO SCH (08:26)
[2018-09-04] MEDS: buPROPion SR TAB.SR* 150 MG PO SCH (08:26)
[2018-09-04] MEDS: Venlafaxine EXT RELEASE CAP* 37.5 MG PO SCH (08:26)
[2018-09-04] MEDS: Insulin LISPRO* 1 UNITS UNIT SUBCUT SCH (08:26)
[2018-09-04] MEDS: Heparin VIAL(*) 5000 UNITS/ML VIAL (FIVE THOUSAND) SUBCUT SCH (08:27)
--- NOTE | 2018-09-04 09:14 | PN ---
Subjective Date of Service: 09/04/18 Interval History: Ms. Flores reports that she continues to feel well and is eager for discharge to home. She denies dyspnea with exertion. She remains on 1.5L NC and states that she has oxygen at home which she normally wears at night. She denies chest pain, SOB, nausea, or abdominal pain. Objective Active Medications: Acetaminophen (Tylenol Tab*) 650 mg PO Q4H PRN Hydrocodone Bitart/Acetaminophen ([place] 5-325 Tab*) 1 tab PO Q6H PRN Albuterol (Ventolin Hfa Inhaler*) 2 puff INH Q4H PRN Albuterol (Ventolin 2.5 Mg/3 Ml Neb.Rosibel*) 2.5 mg INH Q4H PRN Albuterol/Ipratropium (Duoneb (Albuterol 2.5 Mg/Ipratropium 0.5 Mg)) 1 neb INH [id number] AWAKE PRN Azithromycin (Zithromax Tab*) 250 mg PO DAILY MALENA Bupropion HCl (Wellbutrin Sr Tab*) 150 mg PO BID MALENA Cyclobenzaprine HCl (Flexeril Tab*) 10 mg PO BID PRN Dextrose (D50w Syringe 50 Ml*) 12.5 gm IV PUSH .FOR FS < 60 - SS PRN Gabapentin (Neurontin Cap(*)) 300 mg PO BID MALENA Heparin Sodium (Porcine) (Heparin Vial(*)) 5,000 units SUBCUT Q12HR MALENA Insulin Human Lispro (Humalog*) 0 units SUBCUT ACHS MALENA; Protocol Metformin HCl (Glucophage*) 1,000 mg PO BID MALENA Methylprednisolone (Medrol Tab*) 4 mg PO 0700,1300,1800,2100 MALENA Methylprednisolone (Medrol Tab*) 4 mg PO 0700,1300,2100 MALENA Methylprednisolone (Medrol Tab*) 4 mg PO 0700,2100 MALENA Methylprednisolone (Medrol Tab*) 4 mg PO 0700 MALENA Omeprazole (Prilosec Cap*) 40 mg PO DAILY MALENA Venlafaxine HCl (Effexor Xr Cap*) 75 mg PO DAILY MALENA Vital Signs: Temp Pulse Resp BP Pulse Ox 97.5 F 64 14 143/88 94 09/04/18 07:40 09/04/18 07:40 09/04/18 08:26 09/04/18 07:40 09/04/18 07:40 Oxygen Devices in Use Now: Nasal Cannula Appearance: Female sitting up in chair in NAD Eyes: No Scleral Icterus Ears/Nose/Mouth/Throat: Mucous Membranes Moist Neck: Trachea Midline Respiratory: Symmetrical Chest Expansion and Respiratory Effort, - - Scattered minimal wheezing throughout Cardiovascular: NL Sounds; No Murmurs; No JVD, No Edema Abdominal: NL Sounds; No Tenderness; No Distention Extremities: No Edema Skin: No Rash or Ulcers Neurological: Alert and Oriented x 3, NL Muscle Strength and Tone Nutrition: Taking PO's Result Diagrams: 09/02/18 05:09 09/03/18 07:17 Additional Lab and Data: . Microbiology and Other Data: . Assess/Plan/Problems-Billing Assessment: Ms. Flores is a 37 yr old with hx of super morbid obesity and asthma who was admitted on 09/02/18 with an asthma exceerbation and acute hypoxic respiratory failure. - Patient Problems (1) Acute hypoxemic respiratory failure Comment: - Now on 1.5L. Acute on chronic respiratory failure. Patient on nocturnal supplemental O2 for [place] at home. Suspect a component of obesity hypoventilation too. (2) Asthma exacerbation Comment: - Feels well, only mild wheezing noted, now on 1.5L NC - Continue Azithromycin, steroid taper, bronchodilators. (3) Type II diabetes mellitus Comment: - Controlled with A1c 6.7%. - Continue metformin. - Add Lispro SS while on steroids. (4) Morbid obesity Comment: - [facility]. (5) SHARMIAL (obstructive sleep apnea) Comment: - Pt has CPAP already at home. (6) Adrenal tumor Comment: - Incidental finding of left adrenal tumor on CTA, present previously. - She does have some cushingoid features (central obesity, stretch kaiser, "buffalo hump") but these may be secondary to her supermorbid obesity. - Will check ACTH, cortisol, renin, aldosterone pending - may need further w/u as outpatient. (7) DVT prophylaxis Comment: - SQ heparin. (8) Full code status Comment: Status and Disposition: Inpatient. Discharge to home
[2018-09-04] MEDS ORDERED: methylPREDNISolone TAB* 4 MG PO ONE (09:31)
--- NOTE | 2018-09-04 11:40 | DS ---
AMENDED REPORT NOW INCLUDES DESIGNATED COSIGNER CC: Dr. Gregory* [facility] MEDICINE DISCHARGE SUMMARY: DATE OF ADMISSION: 09/01/18 DATE OF DISCHARGE: 09/04/18 PRIMARY CARE PHYSICIAN: Dr. Gregory. ATTENDING PHYSICIAN: Tima Bailey MD* (dictation provided by Cuate Montes NP ) PRIMARY DIAGNOSES: 1. Asthma exacerbation. 2. Acute on chronic hypoxic respiratory failure, resolving. SECONDARY DIAGNOSES: 1. Super morbid obesity. 2. Type 2 diabetes, non-insulin dependent. 3. Gastroesophageal reflux disease. 4. Asthma. 5. Obstructive sleep apnea. 6. Back pain. 7. Depression. 8. Polycystic ovary syndrome. PAST SURGICAL HISTORY: 1. History of . 2. Tubal ligation. MEDICATIONS AT THE TIME OF DISCHARGE: 1. Azithromycin 250 mg p.o. daily x2 days. 2. Methylprednisolone 12 mg, taper down over the next 3 days. 3. Flexeril 10 mg p.o. b.i.d. p.r.n. 4. Albuterol inhaler 2 puffs inhaled q.4 hours p.r.n. 5. Albuterol nebulizer 2.5 mg inhaled q.4 hours p.r.n. 6. Metformin 1000 mg p.o. b.i.d. 7. Bupropion SR 150 mg p.o. b.i.d. 8. Venlafaxine 37.5 mg 2 caps p.o. daily. 9. Omeprazole 40 mg p.o. daily. 10. Hydrocodone/acetaminophen 7.5/300 mg 1 tab p.o. q.6 hours p.r.n. 11. Gabapentin 300 mg p.o. b.i.d. HOSPITAL COURSE: Ms. Flores is a 37-year-old female with a past medical history of super morbid obesity, asthma, and diabetes, who presented to hospital on 09/01/18 with concern for shortness of breath. Please see the dictated H and P from Dr. Garner for complete details. In brief, patient reported that she had had shortness of breath and cough with yellowish sputum production for 4-5 days. She originally presented to urgent care and then to the emergency room. She was given Solu-Medrol and respiratory nebulizer treatments, but despite this continued to be short of breath, have an O2 saturation of 88%. and require 5 L of oxygen. Ms. Flores was admitted to the hospital after concern for an asthma exacerbation. Her workup has included a chest and thorax CTA, which showed "no acute findings in the chest. Stable large left adrenal lesion with no followup required per Radiology." Her labs showed no leukocytosis. Her electrolytes were essentially normal. Her BUN and creatinine were normal. Her vitals were stable other than her new oxygen requirement for acute hypoxic respiratory failure. Ms. Bro has been treated with a methylprednisolone taper and azithromycin for her asthma exacerbation. She did have H influenzae positive sputum which may be a contaminate, but would be treated appropriately with azithromycin. She is now down to 1.5 L of oxygen and is ambulating in her room independently for the past 24 to 48 hours without significant dyspnea on exertion and is eager for discharge to home. DISCHARGE CONDITION: Ms. Flores is medically stable for discharge to home to complete a course of methylprednisolone and azithromycin and to follow up closely with her primary care physician, Dr. Gregory. DISPOSITION: Home. DIET: Low fat, low carb. ACTIVITY: As tolerated. FOLLOWUP PLANS: 1. Please follow up with Dr. Gregory within the next 3 to 7 days regarding this hospitalization. 2. Please continue daily on oxygen during the day at 1.5 L nasal cannula in addition to the oxygen at night and to follow up with Dr. Gregory. TIME SPENT: Approximately 60 minutes were spent on the discharge of this patient, more than half the time was spent with the patient at the bedside reviewing the events leading up to this hospitalization, performing the physical examination, and reviewing the discharge plan. CUATE MONTES NP [id number]/CPS #: [id number] SHELL
[2018-09-05] MEDS ORDERED: methylPREDNISolone TAB* 4 MG - DAY 4 0700,1300,2100 PO SCH (07:00)
[2018-09-06] MEDS ORDERED: methylPREDNISolone TAB* 4 MG - DAY 5 0700,2100 PO SCH (07:00)
[2018-09-07] MEDS ORDERED: methylPREDNISolone TAB* 4 MG - DAY 6 0700 PO SCH (07:00)
== END 2018-09-04 11:00 | disposition home or self-care (01) | DRG 133 ==
LOC: ED 19:11 → MED 09-02 01:58
PROVIDERS: ADMIT Internal Medicine; ATTEND Internal Medicine
DX: J96.21 Acute and chronic respiratory failure with hypoxia (principal); J45.901 Unspecified asthma with (acute) exacerbation; E66.2 Morbid (severe) obesity with alveolar hypoventilation; Z68.45 Body mass index [BMI] 70 or greater, adult; E11.9 Type 2 diabetes mellitus without complications; K21.9 Gastro-esophageal reflux disease without esophagitis; G47.33 Obstructive sleep apnea (adult) (pediatric); M54.9 Dorsalgia, unspecified; F32.9 Major depressive disorder, single episode, unspecified; F17.210 Nicotine dependence, cigarettes, uncomplicated; E28.2 Polycystic ovarian syndrome; Z82.49 Family history of ischemic heart disease and other diseases of the circulatory system; Z79.84 Long term (current) use of oral hypoglycemic drugs; D35.02 Benign neoplasm of left adrenal gland
CPT/HCPCS: 36415; 71275; 80048; 80053; 80061; 82024; 82088; 82533; 83036; 83735; 84244; 84702; 85025; 85379; 87070; 87077; 87185; 87205; 90686; 90732; 94640; 99284; A9270-GY; J1644; J2930; J3475; J7509; Q9967

== ENCOUNTER 2021-10-24 10:09 | Inpatient (IN) ==
[2021-10-24 12:01] LABS: ABS Basophils 0.1 10^3/ul (0-0.2); ABS Eosinophils 0.1 10^3/ul (0-0.6); ABS Lymphocytes 1.7 10^3/ul (1.0-4.8); ABS Monocytes 0.6 10^3/ul (0-0.8); ABS Neutrophils 4.4 10^3/ul (1.5-7.7); Eosinophil % 1.3 %; Hematocrit 46 % (35-47); Hemoglobin 15.1 g/dL (12.0-16.0); Lymphocyte % 24.5 %; Mean Corpuscular HGB Conc 33 g/dL (31-36); Mean Corpuscular Hemoglobin 32 pg (27-31); Mean Corpuscular Volume 97 fL (80-97); Mean Platelet Volume 8.3 fL (7.4-10.4); Nucleated Red Blood Cells % 0.2; Platelet Count 214 10^3/uL (150-450); Red Blood Count 4.78 10^6 /uL (3.70-4.87); Red Cell Distribution Width 16 % (10-15); White Blood Count 6.9 10^3/uL (3.5-10.8)
[2021-10-24 12:12] LABS: Albumin 3.6 g/dL (3.2-5.2); Calcium 9.2 mg/dL (8.6-10.3); Globulin 3.7 g/dL (2-4); Potassium 4.8 mmol/L (3.5-5.0); Total Bilirubin 0.3 mg/dL (0.2-1.0); Total Protein 7.3 g/dL (6.4-8.9)
[2021-10-24 12:17] LABS: Rapid COVID-19 Molecular Undetected (Undetected)
[2021-10-24 15:17] LABS: PO2 Arterial 97 mmHg (80-100)
[2021-10-24 15:33] LABS: PCO2 Arterial 86 mmHg (35-45)
[2021-10-24] MEDS ORDERED: Furosemide 20 mg/2 ml IV VIAL IV SLOW PU ONE (15:44)
[2021-10-24] MEDS ORDERED: Ondansetron 4 mg VIAL 2 MG/ML 2 ml VIAL IV PRN (15:44)
[2021-10-24] MEDS ORDERED: Albuterol HFA INHALER 8 gm MDI INH PRN (15:46)
[2021-10-24] MEDS ORDERED: HYDROcodone/ACET. 7.5/325 LIQ 15 ML UDC PO PRN ×2 (15:46→16:17)
[2021-10-24 17:17] LABS: PO2 Arterial 66 mmHg (80-100)
[2021-10-24 17:22] LABS: PCO2 Arterial 79 mmHg (35-45)
[2021-10-24] MEDS: Enoxaparin 40 MG/0.4 ML SYR SUBCUT SCH (19:23)
[2021-10-25 04:50] LABS: ABS Eosinophils 0.1 10^3/ul (0-0.6); ABS Lymphocytes 1.5 10^3/ul (1.0-4.8); ABS Monocytes 0.4 10^3/ul (0-0.8); ABS Neutrophils 3.9 10^3/ul (1.5-7.7); Eosinophil % 1.5 %; Hematocrit 43 % (35-47); Hemoglobin 13.7 g/dL (12.0-16.0); Lymphocyte % 25.1 %; Mean Corpuscular HGB Conc 32 g/dL (31-36); Mean Corpuscular Hemoglobin 31 pg (27-31); Mean Corpuscular Volume 97 fL (80-97); Mean Platelet Volume 8.6 fL (7.4-10.4); Nucleated Red Blood Cells % 0.1; Platelet Count 214 10^3/uL (150-450); Red Cell Distribution Width 16 % (10-15)
[2021-10-25 05:06] LABS: Calcium 8.9 mg/dL (8.6-10.3); Magnesium 2.1 mg/dL (1.9-2.7); Potassium 4.5 mmol/L (3.5-5.0); eGFR CKD-EPI 92.1 (>60)
[2021-10-25] MEDS: Mometasone/Formoter 200/5 MDI INH SCH ×3 (05:35→19:31)
[2021-10-25 06:09] LABS: PO2 Arterial 95 mmHg (80-100)
[2021-10-25 06:11] LABS: PCO2 Arterial 87 mmHg (35-45)
[2021-10-25] MEDS ORDERED: Venlafaxine XR 75 mg PO SCH (09:00)
[2021-10-25] MEDS: Furosemide 40 mg/4 ml IV VIAL IV SLOW PU SCH ×2 (09:12→16:16)
[2021-10-25 09:14] LABS: Phosphorus 5.4 mg/dL (2.5-5.0)
[2021-10-25] MEDS ORDERED: methylPREDNISolone 125 mg 2 ML VIAL IV ONE (10:22)
[2021-10-25] MEDS ORDERED: Albuterol (2.5 MG) 0.5 % CONC 0.5 ML NEB.SOLN INH ONE (10:22)
[2021-10-25] MEDS ORDERED: Albuterol/Ipratropium NEB.SOL (2.5/0.5 MG) 3 ML NEB.SOLN ONE (10:22)
[2021-10-25] MEDS ORDERED: Albuterol 2.5mg/3 ml (0.083%) NEB.SOLN INH PRN (10:24)
[2021-10-25] MEDS ORDERED: Albuterol/Ipratropium NEB.SOL (2.5/0.5 MG) 3 ML NEB.SOLN INH ONE (10:27)
[2021-10-25] MEDS: levETIRAcetam 1000MG IVPREMIX 1,000 MG/100 ML BAG IVPB SCH ×2 (10:28→22:02)
[2021-10-25] MEDS: Pantoprazole VIAL 40 MG VIAL IV SCH (10:28)
[2021-10-25] MEDS: Azithromycin 500 mg/250 ml NS 500 MG/250 ML BAG IVPB SCH (12:11)
[2021-10-25] MEDS: cefTRIAXone 1 gm/50 mL NS BAG 1 GM/50 ML BAG IVPB SCH (12:11)
[2021-10-25 12:22] LABS: PO2 Arterial 74 mmHg (80-100)
[2021-10-25 12:30] LABS: PCO2 Arterial 73 mmHg (35-45)
[2021-10-25] MEDS: Albuterol/Ipratropium NEB.SOL (2.5/0.5 MG) 3 ML NEB.SOLN INH SCH ×3 (14:03→22:42)
[2021-10-25] MEDS ORDERED: methylPREDNISolone 125 mg 2 ML VIAL IV SCH (16:00)
[2021-10-25] MEDS ORDERED: methylPREDNISolone SOD 40 mg/ml 1 ml VIAL IV SCH (16:00)
[2021-10-25] MEDS: Enoxaparin 40 MG/0.4 ML SYR SUBCUT SCH (16:16)
[2021-10-25] MEDS: methylPREDNISolone 125 mg 2 ML VIAL IV SCH (16:16)
[2021-10-25] MEDS ORDERED: Dextrose 50% Syringe 50 ml 25 GM/50 ML SYRINGE IV PUSH PRN (21:16)
[2021-10-26] MEDS: methylPREDNISolone 125 mg 2 ML VIAL IV SCH ×3 (00:13→17:03)
[2021-10-26 06:35] LABS: Calcium 9.5 mg/dL (8.6-10.3); HDL Cholesterol 54.6 mg/dL; Magnesium 2.1 mg/dL (1.9-2.7); Phosphorus 2.6 mg/dL (2.5-5.0); Potassium 4.4 mmol/L (3.5-5.0)
[2021-10-26 06:38] LABS: ABS Lymphocytes 0.5 10^3/ul (1.0-4.8); ABS Monocytes 0.1 10^3/ul (0-0.8); ABS Neutrophils 7.1 10^3/ul (1.5-7.7); Hematocrit 47 % (35-47); Hemoglobin 15.1 g/dL (12.0-16.0); Lymphocyte % 6.5 %; Mean Corpuscular HGB Conc 32 g/dL (31-36); Mean Corpuscular Hemoglobin 31 pg (27-31); Mean Corpuscular Volume 96 fL (80-97); Mean Platelet Volume 8.9 fL (7.4-10.4); Nucleated Red Blood Cells % 0.1; Platelet Count 234 10^3/uL (150-450); Red Blood Count 4.87 10^6 /uL (3.70-4.87); Red Cell Distribution Width 16 % (10-15); White Blood Count 7.7 10^3/uL (3.5-10.8)
[2021-10-26] MEDS: Mometasone/Formoter 200/5 MDI INH SCH ×2 (07:24→19:56)
[2021-10-26 08:08] LABS: PCO2 Arterial 60 mmHg (35-45); PO2 Arterial 67 mmHg (80-100)
[2021-10-26] MEDS ORDERED: Iodixanol (CONTRAST) 320 MG/ML 100 ML SDV IV SCH (08:27)
[2021-10-26] MEDS: levETIRAcetam 1000MG IVPREMIX 1,000 MG/100 ML BAG IVPB SCH ×2 (10:20→21:58)
[2021-10-26] MEDS: Pantoprazole VIAL 40 MG VIAL IV SCH (11:42)
[2021-10-26] MEDS: cefTRIAXone 1 gm/50 mL NS BAG 1 GM/50 ML BAG IVPB SCH (11:42)
[2021-10-26] MEDS ORDERED: Albuterol 2.5mg/3 ml (0.083%) NEB.SOLN INH SCH (12:00)
[2021-10-26] MEDS ORDERED: Albuterol/Ipratropium NEB.SOL (2.5/0.5 MG) 3 ML NEB.SOLN INH ONE (12:16)
[2021-10-26] MEDS: Azithromycin 500 mg/250 ml NS 500 MG/250 ML BAG IVPB SCH (12:39)
[2021-10-26] MEDS: Enoxaparin 40 MG/0.4 ML SYR SUBCUT SCH (17:03)
[2021-10-26] MEDS: Albuterol/Ipratropium NEB.SOL (2.5/0.5 MG) 3 ML NEB.SOLN INH SCH (19:56)
[2021-10-26 21:59] LABS: Calcium 9.5 mg/dL (8.6-10.3); Potassium 4.6 mmol/L (3.5-5.0); eGFR CKD-EPI 112.5 (>60)
[2021-10-27] MEDS: methylPREDNISolone 125 mg 2 ML VIAL IV SCH ×3 (03:08→15:00)
[2021-10-27 05:06] LABS: ABS Lymphocytes 0.7 10^3/ul (1.0-4.8); ABS Monocytes 0.4 10^3/ul (0-0.8); ABS Neutrophils 9.3 10^3/ul (1.5-7.7); Hematocrit 45 % (35-47); Hemoglobin 14.5 g/dL (12.0-16.0); Lymphocyte % 6.6 %; Mean Corpuscular HGB Conc 32 g/dL (31-36); Mean Corpuscular Hemoglobin 31 pg (27-31); Mean Corpuscular Volume 97 fL (80-97); Mean Platelet Volume 8.5 fL (7.4-10.4); Platelet Count 241 10^3/uL (150-450); Red Blood Count 4.66 10^6 /uL (3.70-4.87); Red Cell Distribution Width 16 % (10-15); White Blood Count 10.5 10^3/uL (3.5-10.8)
[2021-10-27 05:32] LABS: Magnesium 2.2 mg/dL (1.9-2.7)
[2021-10-27] MEDS: Albuterol/Ipratropium NEB.SOL (2.5/0.5 MG) 3 ML NEB.SOLN INH SCH ×4 (07:22→18:54)
[2021-10-27] MEDS: Mometasone/Formoter 200/5 MDI INH SCH ×3 (07:22→20:10)
[2021-10-27] MEDS ORDERED: Dextrose 50% Syringe 50 ml 25 GM/50 ML SYRINGE IV PUSH PRN (08:05)
[2021-10-27] MEDS ORDERED: Flu vaccine *QUAD* 2021-22* 0.5 ML SYRINGE IM ONE (09:00)
[2021-10-27] MEDS ORDERED: Insulin GLARGINE 100 un/ml 10 ml VIAL SUBCUT SCH (09:00)
[2021-10-27] MEDS: levETIRAcetam 1000MG IVPREMIX 1,000 MG/100 ML BAG IVPB SCH (09:49)
[2021-10-27] MEDS: cefTRIAXone 1 gm/50 mL NS BAG 1 GM/50 ML BAG IVPB SCH (09:49)
[2021-10-27] MEDS: Pantoprazole VIAL 40 MG VIAL IV SCH (09:49)
[2021-10-27] MEDS: Azithromycin 500 mg/250 ml NS 500 MG/250 ML BAG IVPB SCH (11:03)
[2021-10-27] MEDS ORDERED: Perflutren Lipid Microsphere 3 ML VIAL ONE (11:10)
[2021-10-27 11:39] LABS: Calcium 9.5 mg/dL (8.6-10.3); Potassium 4.8 mmol/L (3.5-5.0); eGFR CKD-EPI 112.9 (>60)
[2021-10-27] MEDS: Enoxaparin 40 MG/0.4 ML SYR SUBCUT SCH (15:01)
[2021-10-27] MEDS: methylPREDNISolone SOD 40 mg/ml 1 ml VIAL IV SCH (22:11)
[2021-10-28 05:22] LABS: Hematocrit 43 % (35-47); Hemoglobin 14.2 g/dL (12.0-16.0); Mean Corpuscular HGB Conc 33 g/dL (31-36); Mean Corpuscular Hemoglobin 31 pg (27-31); Mean Corpuscular Volume 96 fL (80-97); Mean Platelet Volume 8.7 fL (7.4-10.4); Platelet Count 219 10^3/uL (150-450); Red Blood Count 4.53 10^6 /uL (3.70-4.87); Red Cell Distribution Width 16 % (10-15); White Blood Count 7.8 10^3/uL (3.5-10.8)
[2021-10-28 05:37] LABS: Calcium 9.3 mg/dL (8.6-10.3); Magnesium 2.3 mg/dL (1.9-2.7); Potassium 4.8 mmol/L (3.5-5.0); eGFR CKD-EPI 113.4 (>60)
[2021-10-28] MEDS: Insulin GLARGINE 100 un/ml 10 ml VIAL SUBCUT SCH (08:41)
[2021-10-28] MEDS: Albuterol/Ipratropium NEB.SOL (2.5/0.5 MG) 3 ML NEB.SOLN INH SCH (08:41)
[2021-10-28] MEDS: methylPREDNISolone SOD 40 mg/ml 1 ml VIAL IV SCH (08:42)
[2021-10-28] MEDS: Mometasone/Formoter 200/5 MDI INH SCH ×2 (08:43→19:45)
[2021-10-28] MEDS ORDERED: Albuterol/Ipratropium NEB.SOL (2.5/0.5 MG) 3 ML NEB.SOLN INH SCH (11:00)
[2021-10-28] MEDS: cefTRIAXone 1 gm/50 mL NS BAG 1 GM/50 ML BAG IVPB SCH (11:13)
[2021-10-28] MEDS ORDERED: Albuterol/Ipratropium NEB.SOL (2.5/0.5 MG) 3 ML NEB.SOLN INH PRN (11:14)
[2021-10-28] MEDS: Azithromycin 500 mg/250 ml NS 500 MG/250 ML BAG IVPB SCH (12:10)
[2021-10-28] MEDS: Enoxaparin 40 MG/0.4 ML SYR SUBCUT SCH (18:10)
[2021-10-29 04:38] LABS: Hematocrit 44 % (35-47); Hemoglobin 14.7 g/dL (12.0-16.0); Mean Corpuscular HGB Conc 33 g/dL (31-36); Mean Corpuscular Hemoglobin 32 pg (27-31); Mean Corpuscular Volume 97 fL (80-97); Mean Platelet Volume 8.5 fL (7.4-10.4); Platelet Count 210 10^3/uL (150-450); Red Cell Distribution Width 16 % (10-15); White Blood Count 6.9 10^3/uL (3.5-10.8)
[2021-10-29 04:55] LABS: Calcium 9.3 mg/dL (8.6-10.3); Magnesium 2.3 mg/dL (1.9-2.7); Potassium 4.4 mmol/L (3.5-5.0); eGFR CKD-EPI 112.5 (>60)
[2021-10-29] MEDS ORDERED: Magnesium Hydroxide LIQ 30 ML UDC PO ONE (07:41)
[2021-10-29 08:10] LABS: Albumin 2.6 g/dL (3.4-4.7); Albumin/Globulin Ratio 0.62; Gamma Globulin 1.4 g/dL (0.6-1.6); Total Protein(PEP) 6.8 g/dL (6.3 - 7.9)
[2021-10-29] MEDS: Senna TAB 8.6 mg TAB PO SCH ×2 (09:07→21:51)
[2021-10-29] MEDS: Insulin GLARGINE 100 un/ml 10 ml VIAL SUBCUT SCH (09:08)
[2021-10-29] MEDS: Mometasone/Formoter 200/5 MDI INH SCH ×2 (09:27→20:52)
[2021-10-29] MEDS: Venlafaxine XR 75 mg PO SCH (10:54)
[2021-10-29] MEDS ORDERED: Magnesium Hydroxide LIQ 30 ML UDC PO PRN (13:00)
[2021-10-29] MEDS: cefTRIAXone 1 gm/50 mL NS BAG 1 GM/50 ML BAG IVPB SCH (13:21)
[2021-10-29] MEDS: Enoxaparin 40 MG/0.4 ML SYR SUBCUT SCH (15:01)
[2021-10-29] MEDS: Azithromycin 500 mg/250 ml NS 500 MG/250 ML BAG IVPB SCH (15:01)
[2021-10-30 06:18] LABS: Hematocrit 46 % (35-47); Hemoglobin 14.8 g/dL (12.0-16.0); Mean Corpuscular HGB Conc 32 g/dL (31-36); Mean Corpuscular Hemoglobin 31 pg (27-31); Mean Corpuscular Volume 95 fL (80-97); Mean Platelet Volume 8.9 fL (7.4-10.4); Platelet Count 236 10^3/uL (150-450); Red Blood Count 4.81 10^6 /uL (3.70-4.87); Red Cell Distribution Width 16 % (10-15); White Blood Count 8.2 10^3/uL (3.5-10.8)
[2021-10-30 06:33] LABS: Calcium 9.1 mg/dL (8.6-10.3); Potassium 3.7 mmol/L (3.5-5.0); eGFR CKD-EPI 99.3 (>60)
[2021-10-30] MEDS: Mometasone/Formoter 200/5 MDI INH SCH ×2 (07:42→21:34)
[2021-10-30] MEDS: Venlafaxine XR 75 mg PO SCH (08:26)
[2021-10-30] MEDS: Senna TAB 8.6 mg TAB PO SCH ×2 (08:26→21:37)
[2021-10-30] MEDS: Insulin GLARGINE 100 un/ml 10 ml VIAL SUBCUT SCH (08:27)
[2021-10-30] MEDS: Enoxaparin 40 MG/0.4 ML SYR SUBCUT SCH (16:43)
[2021-10-31 06:11] LABS: ABS Lymphocytes 2.1 10^3/ul (1.0-4.8); ABS Monocytes 0.6 10^3/ul (0-0.8); ABS Neutrophils 4.7 10^3/ul (1.5-7.7); Eosinophil % 0.6 %; Hematocrit 46 % (35-47); Hemoglobin 14.7 g/dL (12.0-16.0); Lymphocyte % 27.6 %; Mean Corpuscular HGB Conc 32 g/dL (31-36); Mean Corpuscular Hemoglobin 31 pg (27-31); Mean Corpuscular Volume 95 fL (80-97); Mean Platelet Volume 8.5 fL (7.4-10.4); Platelet Count 225 10^3/uL (150-450); Red Blood Count 4.79 10^6 /uL (3.70-4.87); Red Cell Distribution Width 16 % (10-15); White Blood Count 7.5 10^3/uL (3.5-10.8)
[2021-10-31 06:41] LABS: Potassium 3.7 mmol/L (3.5-5.0); eGFR CKD-EPI 102.5 (>60)
[2021-10-31] MEDS: Mometasone/Formoter 200/5 MDI INH SCH ×2 (08:28→21:57)
[2021-10-31] MEDS: Insulin GLARGINE 100 un/ml 10 ml VIAL SUBCUT SCH (08:58)
[2021-10-31] MEDS: Venlafaxine XR 75 mg PO SCH (08:58)
[2021-10-31] MEDS ORDERED: COVID-19 VACCINE, MRNA(MODERNA)/PF 100 MCG/0.5 ML IM ONE (14:00)
[2021-10-31] MEDS: Enoxaparin 40 MG/0.4 ML SYR SUBCUT SCH (17:03)
[2021-11-01] MEDS: Mometasone/Formoter 200/5 MDI INH SCH ×2 (08:09→22:00)
[2021-11-01] MEDS: Venlafaxine XR 75 mg PO SCH (09:22)
[2021-11-01] MEDS: Insulin GLARGINE 100 un/ml 10 ml VIAL SUBCUT SCH (09:23)
[2021-11-01] MEDS: Enoxaparin 40 MG/0.4 ML SYR SUBCUT SCH (14:47)
[2021-11-02 05:46] LABS: PCO2 Arterial 53 mmHg (35-45); PO2 Arterial 64 mmHg (80-100)
[2021-11-02] MEDS: Mometasone/Formoter 200/5 MDI INH SCH ×2 (08:28→20:41)
[2021-11-02] MEDS: Insulin GLARGINE 100 un/ml 10 ml VIAL SUBCUT SCH (08:33)
[2021-11-02] MEDS: Venlafaxine XR 75 mg PO SCH (08:34)
[2021-11-02] MEDS: Enoxaparin 40 MG/0.4 ML SYR SUBCUT SCH (15:46)
[2021-11-03 06:51] LABS: ABS Eosinophils 0.1 10^3/ul (0-0.6); ABS Lymphocytes 1.8 10^3/ul (1.0-4.8); ABS Monocytes 0.5 10^3/ul (0-0.8); ABS Neutrophils 3.4 10^3/ul (1.5-7.7); Eosinophil % 2.2 %; Hematocrit 45 % (35-47); Hemoglobin 14.7 g/dL (12.0-16.0); Lymphocyte % 30.9 %; Mean Corpuscular HGB Conc 33 g/dL (31-36); Mean Corpuscular Hemoglobin 31 pg (27-31); Mean Corpuscular Volume 96 fL (80-97); Mean Platelet Volume 8.6 fL (7.4-10.4); Platelet Count 206 10^3/uL (150-450); Red Cell Distribution Width 15 % (10-15)
[2021-11-03] MEDS: Mometasone/Formoter 200/5 MDI INH SCH ×2 (07:50→21:47)
[2021-11-03] MEDS: Venlafaxine XR 75 mg PO SCH (08:35)
[2021-11-03] MEDS: Insulin GLARGINE 100 un/ml 10 ml VIAL SUBCUT SCH (08:40)
[2021-11-03] MEDS: Enoxaparin 40 MG/0.4 ML SYR SUBCUT SCH ×2 (12:09→21:54)
[2021-11-04 05:45] LABS: Calcium 8.9 mg/dL (8.6-10.3); Potassium 4.1 mmol/L (3.5-5.0)
[2021-11-04 05:51] LABS: eGFR CKD-EPI 105.2 (>60)
[2021-11-04] MEDS: Insulin GLARGINE 100 un/ml 10 ml VIAL SUBCUT SCH (08:32)
[2021-11-04] MEDS: Venlafaxine XR 75 mg PO SCH (08:35)
[2021-11-04] MEDS: Enoxaparin 40 MG/0.4 ML SYR SUBCUT SCH ×2 (08:36→22:09)
[2021-11-04] MEDS: Mometasone/Formoter 200/5 MDI INH SCH ×2 (09:06→22:28)
[2021-11-05] MEDS: Enoxaparin 40 MG/0.4 ML SYR SUBCUT SCH ×2 (07:26→21:16)
[2021-11-05] MEDS: Venlafaxine XR 75 mg PO SCH (07:27)
[2021-11-05] MEDS: Mometasone/Formoter 200/5 MDI INH SCH ×2 (07:39→19:34)
[2021-11-05 08:10] LABS: Calcium 9.3 mg/dL (8.6-10.3); Magnesium 2.1 mg/dL (1.9-2.7); Potassium 4.2 mmol/L (3.5-5.0)
[2021-11-05] MEDS: Insulin GLARGINE 100 un/ml 10 ml VIAL SUBCUT SCH (08:23)
[2021-11-06] MEDS: Mometasone/Formoter 200/5 MDI INH SCH ×2 (07:49→20:13)
[2021-11-06] MEDS: Venlafaxine XR 75 mg PO SCH (08:34)
[2021-11-06] MEDS: Enoxaparin 40 MG/0.4 ML SYR SUBCUT SCH ×2 (08:34→21:03)
[2021-11-06] MEDS: Insulin GLARGINE 100 un/ml 10 ml VIAL SUBCUT SCH (08:35)
[2021-11-07] MEDS: Mometasone/Formoter 200/5 MDI INH SCH (07:52)
[2021-11-07 08:38] VITALS: BP 152/80
[2021-11-07] MEDS: Venlafaxine XR 75 mg PO SCH (08:54)
[2021-11-07] MEDS: Insulin GLARGINE 100 un/ml 10 ml VIAL SUBCUT SCH (08:55)
[2021-11-07] MEDS: Enoxaparin 40 MG/0.4 ML SYR SUBCUT SCH (08:55)
== END 2021-11-07 12:05 | disposition home or self-care (01) | DRG 133 ==
LOC: ED 10:09 → SUATTDRO 17:37 → EDHOLD 17:37 → ICU 21:00 → MEDTELE 10-29 11:46
PROVIDERS: ADMIT Internal Medicine; ATTEND Internal Medicine